=== PATIENT | male | born 1950 | race Caucasian/White ===

== ENCOUNTER → 2020-03-15 08:38 | Outpatient (BNVA) | payer MEDICARE, SELFPAY | PROVIDERS: Family Provider Family Medicine; PCP Family Medicine; Visit Provider Family Medicine | DX: I10 Essential (primary) hypertension (principal); L97.329 Non-pressure chronic ulcer of left ankle with unspecified severity | CPT/HCPCS: 80053; 80061; 82044; 84450; 85025; 87070; 87077; 87186 ==

== ENCOUNTER 2020-03-20 07:58 | Outpatient (CLI) | payer MEDICARE, SELFPAY | END 2020-03-20 07:59 | disposition home or self-care (01) | LOC: WOUND 08:01 | PROVIDERS: Family Provider Family Medicine; PCP Family Medicine; Visit Provider Thoracic Surgery (Cardiothoracic Vascular Surgery) | DX: I87.2 Venous insufficiency (chronic) (peripheral) (principal); L97.822 Non-pressure chronic ulcer of other part of left lower leg with fat layer exposed | CPT/HCPCS: 11042; G0463 ==

== ENCOUNTER 2020-03-27 08:10 | Outpatient (CLI) | payer MEDICARE, SELFPAY | END 2020-03-27 08:11 | disposition home or self-care (01) | LOC: WOUND 08:13 | PROVIDERS: Family Provider Family Medicine; PCP Family Medicine; Visit Provider Thoracic Surgery (Cardiothoracic Vascular Surgery) | DX: I87.2 Venous insufficiency (chronic) (peripheral) (principal); L97.822 Non-pressure chronic ulcer of other part of left lower leg with fat layer exposed | CPT/HCPCS: 11042 ==

== ENCOUNTER 2020-04-02 07:47 | Outpatient (CLI) | payer MEDICARE, SELFPAY ==
--- NOTE | 2020-04-02 08:00 | CT_ITS ---
WS: [id number] CT scan of the abdominal aorta and runoff into the lower extremities.. Additional two-dimensional cor onal and sagittal reconstruction was performed. MIP images were also performed. 04/02/2020 Clinical Data: Lifestyle limiting claudication Comparison: CTA of the abdominal aorta with runoff, 04/05/2019. DLP: 1627.[address] scans at [facility] use at least one of these dose optimization techniques: automat ed exposure control; mA and/or kV adjustment per patient size (includes targeted exams where dose is matched to clinical indication); or iterative reconstruction. Findings: The abdominal aorta is normal in size with atherosclerotic change of the wall. The renal arteries, ce liac artery, SMA and NEAL are intact. The common iliac arteries branching into the internal and steel plate printer al iliac arteries. The common femoral arteries are normal. The right superficial femoral artery is occluded and there is reconstitution of flow below the poplit eal artery in the anterior tibial artery, peroneal artery and posterior tibial artery. The small deirdre angelia show flow through the right ankle and foot. The left superficial femoral artery is patent and flows into the popliteal artery. The left anterior tibial, posterior tibial and peroneal arteries are diminutive. The flow of these arteries can be seen down to the distal tibia and fibula. Then there is collateral circulation to the left ankle and foot . CT abdomen and pelvis: The lungs show no nodules, masses or effusions. The liver shows fatty infiltration. The spleen, pancr eas, spleen and adrenal glands show no changes from before. There is a small right adrenal adenoma un changed. The kidney show excellent bilateral contrast excretion. There is a 0.5 cm nonobstructing juan manuel tral left renal calculus. There is a 4.4 cm inferior right renal cyst. The stomach, small bowel and c olon are unremarkable. The patient has had a ventral hernia repair. No abscess, adenopathy, ascites, mass, obstruction or free air is seen. The prostate is enlarged with calcifications within. The bladd er is unremarkable. There are bilateral fat-containing inguinal hernias. There is osteoarthritic almazan ge in degenerative disc disease of the lower thoracic and of the lumbar vertebral bodies. CT/CT angio abd aorta runof [id number] Impression: 1. No change in occlusion of the right superficial femoral and right popliteal arteries with collateral circulation reconstituting the arteries of the right l eg. 2. Decreased flow into the arteries of the left leg unchanged. 3. No acute intra-abdominal or pelvic abnormalities are noted.
[2020-04-02] MEDS: iohexol 350 mg/mL 100 mL Btl IV (08:27)
== END 2020-04-02 07:48 | disposition home or self-care (01) ==
LOC: RADWPI 07:50
PROVIDERS: Family Provider Family Medicine; PCP Family Medicine; Visit Provider Internal Medicine Cardiovascular Disease
DX: I73.9 Peripheral vascular disease, unspecified (principal); I70.8 Atherosclerosis of other arteries
CPT/HCPCS: 75635; Q9967

== ENCOUNTER 2020-04-03 08:35 | Outpatient (CLI) | payer MEDICARE, SELFPAY | END 2020-04-03 08:36 | disposition home or self-care (01) | LOC: WOUND 08:37 | PROVIDERS: Family Provider Family Medicine; PCP Family Medicine; Visit Provider Thoracic Surgery (Cardiothoracic Vascular Surgery) | DX: I87.2 Venous insufficiency (chronic) (peripheral) (principal); L97.822 Non-pressure chronic ulcer of other part of left lower leg with fat layer exposed | CPT/HCPCS: 11042 ==

== ENCOUNTER 2020-04-05 16:13 | Outpatient (CLI) | payer MEDICARE, SELFPAY | END 2020-04-05 16:14 | disposition home or self-care (01) | LOC: WOUND 16:16 | PROVIDERS: Family Provider Family Medicine; PCP Family Medicine; Visit Provider Surgery | DX: Z51.89 Encounter for other specified aftercare (principal) | CPT/HCPCS: 29581 ==

== ENCOUNTER 2020-04-10 08:38 | Outpatient (CLI) | payer MEDICARE, SELFPAY | END 2020-04-10 08:39 | disposition home or self-care (01) | LOC: WOUND 08:39 | PROVIDERS: Family Provider Family Medicine; PCP Family Medicine; Visit Provider Thoracic Surgery (Cardiothoracic Vascular Surgery) | DX: I87.2 Venous insufficiency (chronic) (peripheral) (principal); L97.822 Non-pressure chronic ulcer of other part of left lower leg with fat layer exposed | CPT/HCPCS: 11042 ==

== ENCOUNTER 2020-04-12 15:28 | Outpatient (CLI) | payer MEDICARE, SELFPAY | END 2020-04-12 15:29 | disposition home or self-care (01) | LOC: WOUND 15:40 | PROVIDERS: Family Provider Family Medicine; PCP Family Medicine; Visit Provider Surgery | DX: T81.31XA Disruption of external operation (surgical) wound, not elsewhere classified, initial encounter (principal); Y83.8 Other surgical procedures as the cause of abnormal reaction of the patient, or of later complication, without mention of misadventure at the time of the procedure; S31.102A Unspecified open wound of abdominal wall, epigastric region without penetration into peritoneal cavity, initial encounter; X58.XXXA Exposure to other specified factors, initial encounter | CPT/HCPCS: 29581 ==

== ENCOUNTER 2020-04-15 13:44 | Outpatient (CLI) | payer MEDICARE, SELFPAY ==
--- NOTE | 2020-04-15 13:51 | USCV_ITS ---
Jt Mccoy Age: 69 Gender: M : 1950 Exam Date: 04/15/2020 14:05 Ordering Phys: Edmond Edmond MD (Andy) ([email or web address]) Technologist: Daysi Napoles Exam Location: [facility] [place] Indication: HISTORY: Patient has ulcers. PROCEDURES: FINDINGS: There is no evidence of LEFT deep vein thrombosis. No evidence of superficial thrombosis in the LEFT saphenous system. Reflux is demonstrated in the deep venous system at the level of the LEFT Popliteal. No venous reflux noted in the LEFT greater saphenous vein. Vein is to small to follow after proximal location. Venous reflux is demonstrated in the LEFT small saphenous vein with a spectral Doppler display of greater than 500 mlsec at the level of the medial calf. CONCLUSIONS 1. No evidence of DVT in the above-mentioned identifiable veins. 2. Significant venous reflux of greater than 500 ms were noted at the mid saphenous vein segment the left side. The proximal saphenous vein segment was found to no significant reflux 3. Significant venous reflux of greater than 1000 ms was noted at the left popliteal vein. 4. The mid, distal and below-knee greater saphenous vein segments were not visualized well. 5. Venous dimensions, depth from the surface and reflux times are as mentioned above Dr Emily Schwartz MD [facility] (Electronically Signed) Final Date: 15 April 2020 19:38 S
== END 2020-04-15 13:45 | disposition home or self-care (01) ==
PROVIDERS: Family Provider Family Medicine; PCP Family Medicine; Visit Provider Thoracic Surgery (Cardiothoracic Vascular Surgery)
DX: M79.605 Pain in left leg (principal); L97.929 Non-pressure chronic ulcer of unspecified part of left lower leg with unspecified severity
CPT/HCPCS: 93971

== ENCOUNTER 2020-04-16 08:15 | Outpatient (CLI) | payer MEDICARE, SELFPAY | END 2020-04-16 08:16 | disposition home or self-care (01) | LOC: WOUND 08:16 | PROVIDERS: Family Provider Family Medicine; PCP Family Medicine; Visit Provider Thoracic Surgery (Cardiothoracic Vascular Surgery) | DX: I87.2 Venous insufficiency (chronic) (peripheral) (principal); L97.822 Non-pressure chronic ulcer of other part of left lower leg with fat layer exposed | CPT/HCPCS: 11042 ==

== ENCOUNTER 2020-04-23 14:00 | Outpatient (CLI) | payer MEDICARE, SELFPAY | END 2020-04-23 14:01 | disposition home or self-care (01) | LOC: WOUND 14:01 | PROVIDERS: Family Provider Family Medicine; PCP Family Medicine; Visit Provider Surgery | DX: I87.2 Venous insufficiency (chronic) (peripheral) (principal); L97.822 Non-pressure chronic ulcer of other part of left lower leg with fat layer exposed | CPT/HCPCS: 11042 ==

== ENCOUNTER 2020-04-30 08:00 | Outpatient (CLI) | payer MEDICARE, SELFPAY | END 2020-04-30 08:01 | disposition home or self-care (01) | LOC: WOUND 08:02 | PROVIDERS: Family Provider Family Medicine; PCP Family Medicine; Visit Provider Thoracic Surgery (Cardiothoracic Vascular Surgery) | DX: I87.2 Venous insufficiency (chronic) (peripheral) (principal); L97.822 Non-pressure chronic ulcer of other part of left lower leg with fat layer exposed | CPT/HCPCS: 11042; A6545 ==

== ENCOUNTER 2020-05-07 08:24 | Outpatient (CLI) | payer MEDICARE, SELFPAY | END 2020-05-07 08:25 | disposition home or self-care (01) | LOC: WOUND 08:28 | PROVIDERS: Family Provider Family Medicine; PCP Family Medicine; Visit Provider Thoracic Surgery (Cardiothoracic Vascular Surgery) | DX: E78.1 Pure hyperglyceridemia (principal); I87.2 Venous insufficiency (chronic) (peripheral); L97.822 Non-pressure chronic ulcer of other part of left lower leg with fat layer exposed | CPT/HCPCS: 11042; 80053 ==

== ENCOUNTER 2020-05-14 08:37 | Outpatient (CLI) | payer MEDICARE, SELFPAY | END 2020-05-14 08:38 | disposition home or self-care (01) | LOC: WOUND 08:40 | PROVIDERS: Family Provider Family Medicine; PCP Family Medicine; Visit Provider Thoracic Surgery (Cardiothoracic Vascular Surgery) | DX: I87.2 Venous insufficiency (chronic) (peripheral); L97.829 Non-pressure chronic ulcer of other part of left lower leg with unspecified severity | CPT/HCPCS: 29581 ==

== ENCOUNTER 2020-05-21 08:27 | Outpatient (CLI) | payer MEDICARE, SELFPAY | END 2020-05-21 08:28 | disposition home or self-care (01) | LOC: WOUND 08:29 | PROVIDERS: Family Provider Family Medicine; PCP Family Medicine; Visit Provider Thoracic Surgery (Cardiothoracic Vascular Surgery) | DX: Z09 Encounter for follow-up examination after completed treatment for conditions other than malignant neoplasm (principal) | CPT/HCPCS: 99212 ==

== ENCOUNTER 2020-05-28 08:25 | Outpatient (CLI) | payer MEDICARE, SELFPAY | END 2020-05-28 08:26 | disposition home or self-care (01) | LOC: WOUND 08:28 | PROVIDERS: Family Provider Family Medicine; PCP Family Medicine; Visit Provider Emergency Medicine | DX: I87.2 Venous insufficiency (chronic) (peripheral) (principal); L97.822 Non-pressure chronic ulcer of other part of left lower leg with fat layer exposed | CPT/HCPCS: 99212 ==

== ENCOUNTER 2020-06-04 08:06 | Outpatient (CLI) | payer MEDICARE, SELFPAY | END 2020-06-04 08:07 | disposition home or self-care (01) | LOC: WOUND 08:09 | PROVIDERS: Family Provider Family Medicine; PCP Family Medicine; Visit Provider Nurse Practitioner Family | DX: I87.2 Venous insufficiency (chronic) (peripheral) (principal); L97.822 Non-pressure chronic ulcer of other part of left lower leg with fat layer exposed; L03.116 Cellulitis of left lower limb | CPT/HCPCS: 99212 ==

== ENCOUNTER 2020-06-04 09:47 | Emergency (ER) | payer MEDICARE, SELFPAY ==
[2020-06-04 09:52] VITALS: BMI 35.2
--- NOTE | 2020-06-04 09:53 | USCV_ITS ---
Jt Mccoy Age: 69 Gender: M : 1950 Exam Date: 06/04/2020 10:29 Ordering Phys: Catarino Owen DO Technologist: Norman Barragan [place] [facility] [place] Indication: VENOUS ULCERS HISTORY: Ulcers. PROCEDURES: The venous duplex Doppler examination of both lower extremities was performed in the standard fashion. The following venous structures were evaluated: common femoral vein, profunda vein, proximal portion of the greater saphenous vein, superficial femoral vein, and the popliteal vein. FINDINGS: Normal 2-D Doppler and augmentation and compressibility throughout the lower extremity venous structures. Additional imaging through the proximal calf veins also reveals no thrombus. Limited evaluation of the greater saphenous vein is patent with no thrombus.. CONCLUSIONS No evidence of DVT in the above-mentioned identifiable veins. Dr Emily Schwartz MD [facility] (Electronically Signed) Final Date: 04 June 2020 19:32 S
[2020-06-04 09:54] VITALS: BP 157/82; PULSE 92; RESP 18; TEMP 36.4; O2SAT 97
[2020-06-04 10:24] LABS: Basophils % 0.7 %; Eosinophils # 0.2 10^3/uL (0.0-0.8); Eosinophils % 4.3 %; Hematocrit 46.6 % (42.0-52.0); Hemoglobin 15.1 g/dL (11.7-16.6); Lymphocytes # 1.1 10^3/uL (0.8-4.8); Lymphocytes % 19.8 %; Mean Corpuscular HGB Conc 32.4 g/dL (30.0-36.0); Mean Corpuscular Hemoglobin 30.8 pg (28.0-34.0); Mean Corpuscular Volume 94.9 fL (80-94); Mean Platelet Volume 9.4 fL (7.4-10.4); Monocytes # 0.4 10^3/uL (0.2-0.9); Monocytes % 6.6 %; Neutrophils # 3.79 10^3/uL (1.8-7.7); Neutrophils % 67.4 %; Nucleated Red Blood Cells % 0 %; Platelet Count 246 10^3/cmm (130-400); Red Blood Count 4.91 10^6/uL (4.1-5.3); Red Cell Distribution Width 12.9 % (12.1-15.1); White Blood Count 5.6 10^3/uL (4.0-10.0)
--- NOTE | 2020-06-04 10:35 | ED_ITS ---
HPI - Extremity Problem General: Chief complaint: Extremity Problem,Nontraumatic Stated complaint: sent from wound care for iv Time Seen by Provider: 06/04/20 09:53 History of Present Illness: HPI Narrative: 69-year-old male presents with left leg swelling. He was seen at the wound care clinic today referred here because of concern of DVT he has a lot of skin breakdown the left leg as well and some moderate swelling of the right leg. He had been on some clindamycin for last few days he is got a rash on his extremities but none on his torso they are concerned may have been a reaction to the clindamycin he was referred here by the nurse practitioner at wound care clinic. Patient denies any chest pain or shortness of breath he is not had any fever sweats or chills. He does state the swelling of his extremities is chronic but has gotten worse the last few days. MD Complaint: extremity swelling Onset (ago): day(s) Location: left Quality: aching Relieving factors: nothing Exacerbating factors: nothing Associated symptoms: Reports rash; Deny arthralgias, chest pain, fever(s), myalgias or short of breath Review of Systems Const: Denies: fever(s) ENMT: Denies: throat pain, ear or mastoid pain, nasal discharge or nasal congestion Card: Denies: chest pain Resp: Denies: dyspnea, productive cough or non-productive cough GI: Denies: abdominal pain, nausea, vomiting, hematemesis, coffee ground emesis, diarrhea, constipation, bloating, hematochezia or melena : Denies: flank pain, dysuria, urinary frequency or urinary urgency Skin/Breast: Reports: rash [facility] PFSH: Medical History ANY (generalized anxiety disorder) History of prostate cancer History of pulmonary embolism HTN (hypertension) Hypertriglyceridemia Lower urinary tract symptoms (LUTS) BIRGIT (obstructive sleep apnea) Peripheral Vascular Disease S/P angiogram of extremity Surgical History History of prostate biopsy S/P appendectomy S/P hernia repair S/P knee surgery S/P lymph node biopsy S/P routine circumcision S/P tonsillectomy S/P vein stripping Family History Other Cancer Social History Smoking and tobacco status: current every day smoker cigarettes Packs smoked per day: 0.5 Alcohol intake: never Physical Exam Const: COMMON NORMALS: no acute distress GENERAL APPEARANCE: cooperative and comfortable ORIENTATION/CONSCIOUSNESS: Yes awake, Yes oriented to person, Yes oriented to place and Yes oriented to time HENMT: COMMON NORMALS: normocephalic, atraumatic and hearing grossly normal bilaterally HEAD & SCALP: normocephalic and atraumatic Eye: COMMON NORMALS: Equal, round and reactive pupils present, EOMs intact bilaterally, conjunctivae normal and no scleral icterus CONJUNCTIVA: Yes conjunctivae normal PUPIL: Yes Equal, round and reactive pupils present Neck/C-Spine: COMMON NORMALS: full ROM, no lymphadenopathy, supple and no JVD Lymph: LYMPHATIC: no lymphadenopathy noted and no lymphedema noted Resp: COMMON NORMALS: normal respiratory effort, No retractions, No use of acc essory muscles and clear to auscultation bilaterally AUSCULTATION: clear to auscultation bilaterally Cardio: COMMON NORMALS: no JVD, regular rate, regular rhythm and No murmurs present (Cardio) RATE: regular rate RHYTHM: regular rhythm GI: COMMON NORMALS: Soft to palpation and No hepatosplenomegaly present AUSCULTATION: Yes normoactive bowel sounds PALPATION: Yes Soft to palpation, No Tenderness to palpation present (GI), No Guarding due to palpation present (GI) and Yes No hepatosplenomegaly present Extremity: NARRATIVE EXTREMITY EXAM: 2+ edema of the right lower leg 3+ edema of the left lower leg to the level of the knee with significant skin breakdown and excoriation it is deeply violaceous. There is no active purulent drainage. It is tender to the touch. Neuro: SENSORIUM/ORIENTATION: Yes oriented to person, Yes oriented to place and Yes oriented to time Skin: NARRATIVE SKIN EXAM: Rash mildly raised papules with some excoriation of the distal extremities which fades as it gets more proximal there are no vesicles. No signs of infections in the upper extremities see above for the lower extremities the right lower leg has changes of chronic venous stasis edema without findings of the rash found on the upper extremities. Course Vital Signs: Vital signs: Vital Signs Temperature 98.7 F 06/04/20 11:21 Pulse Rate 71 06/04/20 11:21 Respiratory Rate 20 H 06/04/20 11:21 Blood Pressure 163/78 06/04/20 11:21 Pulse Oximetry 97 06/04/20 11:21 MDM - Extremity (Nontraumatic) MDM Narrative: Medical decision making narrative: No DVT noted on ultrasound patient has significant edema which is chronic. He is on Eliquis 5 mg twice daily and has been taking it continue to take that. There is a concern he may be reacting to clindamycin a little bit cautious about.he does not really have a systemic rash its only on his distal extremities. We will go ahead and discharge him home on doxycycline have him stop the clindamycin for now continue his Eliquis and follow-up with his wound care clinic within the next 2 to 3 days. Lab Data: Labs: Lab Results 06/04/20 06/04/20 Range/Units 10:10 10:10 WBC 5.6 (4.0-10.0) 10^3/ uL RBC 4.91 (4.1-5.3) 10^6/u L Hgb 15.1 (11.7-16.6) g/dL Hct 46.6 (42.0-52.0) % MCV 94.9 H (80-94) fL MCH 30.8 (28.0-34.0) pg MCHC 32.4 (30.0-36.0) g/dL RDW 12.9 (12.1-15.1) % Plt Count 246 (130-400) 10^3/c mm MPV 9.4 (7.4-10.4) fL Neut % (Auto) 67.4 % Lymph % (Auto) 19.8 % Daniels % (Auto) 6.6 % Eos % (Auto) 4.3 % Baso % (Auto) 0.7 % Neut # (Auto) 3.79 (1.8-7.7) 10^3/u L Lymph # (Auto) 1.1 (0.8-4.8) 10^3/u L Daniels # (Auto) 0.4 (0.2-0.9) 10^3/u L Eos # (Auto) 0.2 (0.0-0.8) 10^3/u L Baso # (Auto) 0.0 (0.0-0.1) 10^3/u L Nucleated RBC % (a uto) 0 % Nucleated RBCs # 0.0 /100WBC Sodium 140 (136-145) mmol/L Potassium 3.9 (3.5-5.1) mmol/L Chloride 106 (98-107) mmol/L Carbon Dioxide 23 (22-29) mmol/L Anion Gap 14.9 (5-19) BUN 11 (8-23) mg/dL Creatinine 0.9 (0.7-1.2) mg/dL GFR Calculation Not Reportable Glucose 138 H (65-115) mg/dL Calculated Osmolal ity 288 (285-295) mOsm/k g Calcium 8.5 (8.5-10.5) mg/dL Total Bilirubin 0.4 (0.15-1.2) mg/dL AST 19 (0-40) U/L ALT 12 (0-41) U/L Alkaline Phosphata se 67 (40-130) IU/L Total Protein 7.0 (6.6-8.7) g/dL Albumin 3.3 L (3.5-5.2) g/dL Globulin 3.7 (1.3-4.6) g/dL Discharge Plan Discharge Patient Disposition: Home Clinical Impression: Lower extremity edema, Peripheral Vascular Disease, Cellulitis Condition: Stable Prescriptions: New doxycycline hyclate 100 mg capsule 100 mg PO BID 10 Days Qty: 20 RF: 0 No Action cilostazol 50 mg tablet 50 mg PO BID 90 Days Qty: 180 RF: 3 alprazolam 0.5 mg tablet 0.5 mg PO DAILY PRN (Reason: anxiety) Qty: 30 RF: 1 tamsulosin 0.4 mg capsule 0.4 mg PO BID Qty: 60 RF: 12 atorvastatin 10 mg tablet 10 mg PO DAILY Qty: 45 RF: 0 Eliquis 5 mg tablet 5 mg PO BID Qty: 60 RF: 2 Discharge Orders: Discharge Order (Routine); Ordered 06/04/20 Ordered By: Catarino Owen Referrals: Yecenia Hernandez DO [Primary Care Provider] - Discharge Diet: Usual diet Discharge Activity: Increase activity as tolerated Activity Restrictions/Additional Instructions: Follow-up with wound care in the next 2 to 3 days. Return to the urgent emergency room for further problems. Discharge Date/Time: 06/04/20 11:24 Coding Level of Care Code ED Family Nurse Practitioner for Marcella Fwgonzales Exam Comprehensive
[2020-06-04 10:39] VITALS: BP 134/63; PULSE 90; RESP 18; O2SAT 98
[2020-06-04 10:40] LABS: Alanine Aminotransferase 12 U/L (0-41); Albumin Level 3.3 g/dL (3.5-5.2); Alkaline Phosphatase 67 IU/L (40-130); Anion Gap 14.9 (5-19); Aspartate Amino Transferase 19 U/L (0-40); Blood Urea Nitrogen 11 mg/dL (8-23); Calcium 8.5 mg/dL (8.5-10.5); Carbon Dioxide 23 mmol/L (22-29); Chloride 106 mmol/L (98-107); Globulin 3.7 g/dL (1.3-4.6); Glucose 138 mg/dL (65-115); Osmolality Calculated 288 mOsm/kg (285-295); Potassium 3.9 mmol/L (3.5-5.1); Sodium 140 mmol/L (136-145); Total Bilirubin 0.4 mg/dL (0.15-1.2)
[2020-06-04 11:21] VITALS: BP 163/78; PULSE 71; RESP 20; TEMP 37.1; O2SAT 97
== END 2020-06-04 11:24 | disposition home or self-care (01) ==
PROVIDERS: Emergency Provider Family Medicine; PCP Family Medicine
DX: I73.9 Peripheral vascular disease, unspecified (principal); L03.90 Cellulitis, unspecified; Z85.46 Personal history of malignant neoplasm of prostate; Z79.01 Long term (current) use of anticoagulants; I10 Essential (primary) hypertension; F17.210 Nicotine dependence, cigarettes, uncomplicated; I87.2 Venous insufficiency (chronic) (peripheral); L97.822 Non-pressure chronic ulcer of other part of left lower leg with fat layer exposed; L03.116 Cellulitis of left lower limb
CPT/HCPCS: 12345; 36415; 80053; 85025; 87040; 93970; 99212; 99282; 99283

== ENCOUNTER 2020-06-11 08:24 | Outpatient (CLI) | payer MEDICARE, SELFPAY | END 2020-06-11 08:25 | disposition home or self-care (01) | LOC: WOUND 08:25 | PROVIDERS: PCP Family Medicine; Visit Provider Thoracic Surgery (Cardiothoracic Vascular Surgery) | DX: I87.2 Venous insufficiency (chronic) (peripheral) (principal); L97.822 Non-pressure chronic ulcer of other part of left lower leg with fat layer exposed | CPT/HCPCS: 11042; 11045; 29581 ==

== ENCOUNTER 2020-06-13 15:08 | Outpatient (CLI) | payer MEDICARE, SELFPAY | END 2020-06-13 15:09 | disposition home or self-care (01) | LOC: WOUND 15:09 | PROVIDERS: PCP Family Medicine; Visit Provider Emergency Medicine | DX: I87.2 Venous insufficiency (chronic) (peripheral) (principal); L97.822 Non-pressure chronic ulcer of other part of left lower leg with fat layer exposed; L03.116 Cellulitis of left lower limb | CPT/HCPCS: 29581 ==

== ENCOUNTER → 2020-07-15 12:04 | Outpatient (BNVA) | payer MEDICARE, SELFPAY | PROVIDERS: PCP Family Medicine; Visit Provider Family Medicine | DX: E78.1 Pure hyperglyceridemia (principal); R73.09 Other abnormal glucose | CPT/HCPCS: 80061; 83036 ==

== ENCOUNTER 2020-08-28 13:17 | Outpatient (CLI) | payer MEDICARE, SELFPAY ==
--- NOTE | 2020-08-28 13:00 | XR_ITS ---
WS: [id number] KUB, 08/28/2020 Clinical Data: Stones Comparison: None. Findings: No abnormal intraabdominal masses or calcifications are seen. There is no dilatated small bowel or ev idence of obstruction. No renal or ureteral calculi are seen. The place has had anterior abdominal wall surgery. XR/XR KUB [id number] Impression: Negative KUB.
--- NOTE | 2020-08-28 13:30 | US_ITS ---
WS: [id number] ULTRASOUND RENAL TECHNIQUE: Ultrasound examination of both kidneys. CLINICAL INFORMATION: Stones COMPARISON: None. FINDINGS: RIGHT:Mid pole simple right renal cyst measuring 4.2 x 4.3 x 3.9 cm. Right kidney is normal in size and appearance. Echogenicity: Normal. Cortical thickness: 2.1 cm; Normal. Hydronephrosis: None. Perinephric fluid: None. Right kidney measures: 13.0 cm x 5.7 cm x 6.5 cm. LEFT: Left kidney is normal in size and appearance. Echogenicity: Normal. Cortical thickness: 1.3 cm; Normal. Hydronephrosis: None. Perinephric fluid: None. Left kidney measures: 9.9 cm x 4.3 cm x 5.8 cm. Normal visualized aorta. US/US renal BI* [id number] IMPRESSION: 1. No hydronephrosis in either kidney. 2. Mid pole simple right renal cyst measuring 4.2 x 4.3 x 3.9 cm.
== END 2020-08-28 13:18 | disposition home or self-care (01) ==
LOC: US 13:18
PROVIDERS: PCP Family Medicine; Visit Provider Urology
DX: N20.0 Calculus of kidney (principal); C61 Malignant neoplasm of prostate; R31.0 Gross hematuria; N28.1 Cyst of kidney, acquired
CPT/HCPCS: 74018; 76770; 81003; 84153

== ENCOUNTER → 2020-09-13 15:28 | Outpatient (BNVA) | payer MEDICARE, SELFPAY | PROVIDERS: PCP Family Medicine; Visit Provider Nurse Practitioner Family | DX: Z20.828 Contact with and (suspected) exposure to other viral communicable diseases (principal) | CPT/HCPCS: 87635 ==

== ENCOUNTER → 2020-11-01 11:48 | Outpatient (BNVA) | payer MEDICARE, SELFPAY | PROVIDERS: PCP Family Medicine; Visit Provider Internal Medicine Cardiovascular Disease | DX: E78.1 Pure hyperglyceridemia (principal) | CPT/HCPCS: 80061 ==

== ENCOUNTER 2021-06-27 23:51 | Emergency (ER) | payer MEDICARE, SELFPAY ==
[2021-06-27 23:54] VITALS: BP 160/78; PULSE 91; RESP 18; TEMP 36.8; O2SAT 97; BMI 34.2
--- NOTE | 2021-06-28 00:16 | W.ED.ALLEREA ---
HPI - Allergic Reaction General: Chief complaint: Allergic Reaction Stated complaint: POSS ALLERGIC REACTION Time Seen by Provider: 06/27/21 23:57 Source: patient Mode of arrival: ambulatory Limitations: no limitations History of Present Illness: HPI narrative: 70-year-old male states roughly 1 hour ago he started having swelling to the right side of his tongue. He states that its stayed the same over last hour with no worsening improving factors but is not gotten any better. He denies any difficulty swallowing. Denies any throat pain. Patient is on lisinopril states he is never had this before in the past. Associated symptoms: Deny abdominal pain, nausea or vomiting Review of Systems Const: Denies: fever(s), chills, body aches or change in appetite Eyes: Denies: blurry vision or eye discomfort ENMT: Reports: swelling of lips/tongue Card: Denies: chest pain Resp: Denies: dyspnea GI: Denies: abdominal pain, nausea, vomiting or diarrhea : Denies: dysuria Musc: Denies: neck pain or back pain Skin/Breast: Denies: rash Neuro: Denies: headache(s) Psych: Denies: depression Jose/Lymph: Denies: easy bruising All/Imm: Denies: urticaria PFSH ED PFSH: Medical History CHF (congestive heart failure) ANY (generalized anxiety disorder) History of prostate cancer History of pulmonary embolism HTN (hypertension) Hypertriglyceridemia Lower urinary tract symptoms (LUTS) BIRGIT (obstructive sleep apnea) Peripheral Vascular Disease Prostate cancer S/P angiogram of extremity Surgical History History of prostate biopsy S/P appendectomy S/P hernia repair S/P knee surgery S/P lymph node biopsy S/P routine circumcision S/P tonsillectomy S/P vein stripping Family History Other Cancer Social History Smoking and tobacco status: current every day smoker cigarettes Packs smoked per day: 0.5 Alcohol intake: never Adopted: No Caregiver/support person: No Lives independently: No Household members: spouse Marital status: Current occupational status: retired Physical Exam Const: COMMON NORMALS: no acute distress, patient oriented x3 and healthy appearing HENMT: COMMON NORMALS: normocephalic and atraumatic HEAD & SCALP: normocephalic and atraumatic OTHER: Swelling to right side of the tongue handling his secretions well no lip or posterior pharynx swelling Eye: COMMON NORMALS: Equal, round and reactive pupils present and EOMs intact bilaterally PUPIL: Yes Equal, round and reactive pupils present Neck/C-Spine: COMMON NORMALS: full ROM and supple Chest: COMMONS NORMALS: normal inspection of the chest and normal palpation of entire chest wall Resp: COMMON NORMALS: normal respiratory effort, No retractions, No use of accessory muscles and clear to auscultation bilaterally AUSCULTATION: clear to auscultation bilaterally Cardio: COMMON NORMALS: regular rate, regular rhythm and No murmurs present (Cardio) RATE: regular rate RHYTHM: regular rhythm GI: COMMON NORMALS: Normal to inspection, nondistended, normoactive bowel sounds present, Soft to palpation, non-tender and no masses PALPATION: Yes Soft to palpation Extremity: COMMON NORMALS: normal to inspection and full ROM Neuro: COMMON NORMALS: patient oriented x3, moves all extremities and no focal motor deficits Psych: COMMON NORMALS: mental status grossly normal, Normal thought process present and cooperative THOUGHT PROCESS: Normal thought process present Skin: COMMON NORMALS: no rashes or lesions noted and no wounds GENERAL SKIN EXAM: no rashes or lesions noted Course Vital Signs: Vital signs: Vital Signs Temperature 98.3 F 06/27/21 23:54 Pulse Rate 80 06/28/21 03:46 Respiratory Rate 24 H 06/28/21 03:46 Blood Pressure 119/55 06/28/21 03:46 Pulse Oximetry 96 06/28/21 03:46 MDM - Allergic Reaction MDM Narrative: Medical decision making narrative: Patient presents here with angioedema likely from his lisinopril. Patient was observed here for 5 hours needs much improved. He has no signs of airway involvement I feel he is stable for discharge. He is to stop the lisinopril and we will start him on Lomotil pain. He is return if worsening follow-up his PCP. Discharge Plan Discharge Patient Disposition: Home Clinical Impression: Angioedema Qualifiers: Encounter type: initial encounter Qualified Code(s): T78.3XXA - Angioneurotic edema, initial encounter Condition: Stable Prescriptions: New amlodipine 5 mg tablet 5 mg PO DAILY Qty: 30 RF: 0 Discontinued lisinopril 10 mg tablet 10 mg PO BID Qty: 60 RF: 6 No Action alprazolam 0.5 mg tablet 0.5 mg PO DAILY PRN (Reason: anxiety) Qty: 30 RF: 1 furosemide [Lasix] 40 mg tablet 40 mg PO QAM PRN (Reason: edema) Qty: 90 RF: 3 potassium chloride 20 mEq tablet extended release 20 meq PO DAILY PRN (Reason: Take with Lasix) Qty: 90 RF: 3 atorvastatin 40 mg tablet 40 mg PO DAILY Qty: 90 RF: 3 Eliquis 5 mg tablet 5 mg PO BID Qty: 60 RF: 2 tamsulosin 0.4 mg capsule 0.4 mg PO BID Qty: 60 RF: 12 Discharge Orders: Discharge ED (Routine); Ordered 06/28/21 Ordered By: Eduard Baptiste Referrals: Yecenia Hernandez DO [Primary Care Provider] - 1-3 days Discharge Diet: Advance as tolerated Discharge Activity: Resume usual activity Patient Instructions: Angioedema (ED) Coding Level of Care Code ED Programmer Analyst Consultant for Marcella Fwd Exam Comprehensive
[2021-06-28] MEDS: EPINEPHrine 1 mg/mL INJ 0.3 MG IM (00:27)
[2021-06-28] MEDS: diphenhydrAMINE 50 mg/mL SDV 1mL IVP (00:27)
[2021-06-28 00:28] VITALS: BP 138/71; PULSE 80; RESP 15; O2SAT 96
--- NOTE | 2021-06-28 01:05 | PC.NURSE ---
enrike resting on bed, denies needs or changes at this time, no change to assessment.
[2021-06-28 01:10] VITALS: BP 115/63; PULSE 26; RESP 21; O2SAT 95
[2021-06-28 01:23] VITALS: BP 115/63; PULSE 87; RESP 25; O2SAT 94
[2021-06-28 02:19] VITALS: BP 104/61; PULSE 73; RESP 20; O2SAT 94
[2021-06-28 03:46] VITALS: BP 119/55; PULSE 80; RESP 24; O2SAT 96
[2021-06-28 05:10] VITALS: BP 113/64; PULSE 78; RESP 21; O2SAT 95
== END 2021-06-28 05:11 | disposition home or self-care (01) ==
PROVIDERS: Emergency Provider Emergency Medicine; PCP Family Medicine
DX: T78.3XXA Angioneurotic edema, initial encounter (principal); Z79.01 Long term (current) use of anticoagulants; I11.0 Hypertensive heart disease with heart failure; I50.9 Heart failure, unspecified; Z85.46 Personal history of malignant neoplasm of prostate; Z86.711 Personal history of pulmonary embolism; F17.210 Nicotine dependence, cigarettes, uncomplicated
CPT/HCPCS: 96372; 96374; 96375; 99284; J0171; J1200; J2930

== ENCOUNTER → 2021-07-17 15:17 | Outpatient (BNVA) | payer MEDICARE, SELFPAY | PROVIDERS: PCP Family Medicine; Visit Provider Family Medicine | DX: I10 Essential (primary) hypertension (principal); Z86.711 Personal history of pulmonary embolism; R13.10 Dysphagia, unspecified | CPT/HCPCS: 80053; 85025 ==

== ENCOUNTER → 2021-09-26 11:24 | Outpatient (BNVA) | payer MEDICARE, SELFPAY | PROVIDERS: PCP Family Medicine; Visit Provider Surgery | DX: Z20.822 Contact with and (suspected) exposure to COVID-19 (principal); Z11.52 Encounter for screening for COVID-19 | CPT/HCPCS: 87635 ==

== ENCOUNTER 2021-10-03 06:14 | Day surgery (SDC) | payer MEDICARE, SELFPAY ==
[2021-10-01 10:37] VITALS: BMI 33.6
[2021-10-03 06:45] VITALS: BP 133/83; PULSE 71; RESP 18; TEMP 36.1; O2SAT 97
[2021-10-03] MEDS: sodium chloride 0.9% 1,000 ML 30 ML IV (06:55)
--- NOTE | 2021-10-03 06:59 | ANES.PREANE2 ---
Pre-Anesthetic Assessment Pre-Anesthetic Assessment: Height/Weight: Height 6 ft 1 in Weight 115.666 kg Temp Pulse Resp BP Pulse Ox 97.0 F L 71 18 133/83 97 10/03/21 06:45 10/03/21 06:45 10/03/21 06:45 10/03/21 06:45 10/03/21 06:45 Preop Diagnosis: upper gi symptoms Proposed Procedure: Operation Date: 10/03/21 07:30 Proposed Procedures p EGD 23360 R13.19(Not Applicable) - Gabo Vega MD Was Beta Jason taken within 24 hours: N/A Was Clonidine taken within 24 hours: N/A Last intake: Intake Last Liquid Date 10/02/21 Last Liquid Time 20:00 Last Solid Date 10/02/21 Last Solid Time 18:00 Social: Social History: Tobacco (daily) Exam: Pre-Anes Outpt Exam: alert, oriented x 3, clear to auscultation bilaterally and regular rate & rhythm Airway: Submandibular: WNL Cervical ROM: WNL MP: 2 Dentition: Chipped History/ROS: No significant history except as noted Pulmonary: Pulmonary: COPD, ROTH and SOB CV/HEM: CV/HEM: DVT (takes blood thinners/ hasn't taken in 3 days) : Comments: radiation therapy for prostate Hepatic: Hepatic: None reported GI: GI: None reported Metabolic: Metabolic: Hyperlipidemia Musc/skel: Musc/skel: Weakness (bad knees) Neuropsych: Neuropsych: None reported Anesthetic Plan: ASA status: 2 Anesthesia: Anesthesia Evaluation and MAC Risk of > 500 ml blood loss (7ml/kg in children): No Meds/Allergies Current Medications: Current Medications Generic Name Dose Route Start Last Admin Trade Name Freq PRN Reason Stop Dose Admin Sodium Chloride 1,000 mls @ 30 ml s/hr 10/03/21 06:30 10/03/21 06:55 Sodium Chloride 0.9% IV 10/04/21 06:29 30 mls/hr .Q24H MITZI Administration PFSH Anesthesia PFSH: Medical History (Updated 08/05/21 @ 13:59 by Gabo Vega MD) CHF (congestive heart failure) ANY (generalized anxiety disorder) History of pulmonary embolism HTN (hypertension) Hx of deep venous thrombosis Hypertriglyceridemia Lower urinary tract symptoms (LUTS) BIRGIT (obstructive sleep apnea) Peripheral Vascular Disease Prostate cancer Renal calculus, left Renal cyst, right Urinary frequency Surgical History (Updated 08/05/21 @ 15:24 by Gabo Vega MD) History of prostate biopsy History of umbilical hernia repair S/P angiogram of extremity S/P appendectomy S/P knee surgery S/P lymph node biopsy S/P routine circumcision S/P tonsillectomy S/P vein stripping Status post colonoscopy Family History Other Cancer Social History Smoking and tobacco status: current every day smoker cigarettes Packs smoked per day: 0.5 Alcohol intake: never Adopted: No Caregiver/support person: No Lives independently: No Household members: spouse Marital status: Current occupational status: retired Data Anesthesia Cardiac Studies: No Data to Display
--- NOTE | 2021-10-03 07:26 | W.PM.OPSFHP ---
Same Day Surgery H&P Indication for Procedure/HPI DATE OF PROCEDURE: October 03, 2021 CHIEF COMPLAINT/INDICATIONFOR SURGICAL PROCEDURE: egd PREOP DIAGNOSIS: upper gi symptoms PLANNED PROCEDRUE: Operation Date: 10/03/21 07:30 Proposed Procedures p EGD 85820 R13.19(Not Applicable) - Gabo Vega MD Medications/Allergies* Allergies/Adverse Reactions Allergy/AdvReac Type Severity Reaction Status Date / Time Sulfa (Sulfonamide Allergy Unknown rash Verified 08/05/21 13:44 Antibiotics) lisinopril Allergy tongue and Verified 08/05/21 13:44 throat swelling Current Medications: Generic Name Dose Route Start Last Admin Trade Name Freq PRN Reason Stop Dose Admin Sodium Chloride 1,000 mls @ 30 mls/hr 10/03/21 06:30 10/03/21 06:55 Sodium Chloride 0.9% IV 10/04/21 06:29 30 mls/hr .Q24H MITZI Administration Pertinent History/Comorbid Conditions* Medical History (Updated 08/05/21 @ 13:59 by Gabo Vega MD) CHF (congestive heart failure) ANY (generalized anxiety disorder) History of pulmonary embolism HTN (hypertension) Hx of deep venous thrombosis Hypertriglyceridemia Lower urinary tract symptoms (LUTS) BIRGIT (obstructive sleep apnea) Peripheral Vascular Disease Prostate cancer Renal calculus, left Renal cyst, right Urinary frequency Surgical History (Updated 08/05/21 @ 15:24 by Gabo Vega MD) History of prostate biopsy History of umbilical hernia repair S/P angiogram of extremity S/P appendectomy S/P knee surgery S/P lymph node biopsy S/P routine circumcision S/P tonsillectomy S/P vein stripping Status post colonoscopy Family History (Updated 01/25/20 @ 15:21 by Magdalena Bales RN) Cancer Social History Smoking and tobacco status: current every day smoker cigarettes Packs smoked per day: 0.5 Alcohol intake: never Adopted: No Caregiver/support person: No Lives independently: No Household members: spouse Marital status: Current occupational status: retired Pertinent Exam Findings alert, oriented x 3 and regular rate & rhythm Recommendations Surgery/Procedure today Coding Level of Care Code Acute Colorer Machine for Marcella Rivera
[2021-10-03 07:48] VITALS: BP 112/83; PULSE 73; RESP 20; TEMP 36.4; O2SAT 92
[2021-10-03 07:59] VITALS: BP 114/62; PULSE 70; RESP 19; O2SAT 93
--- NOTE | 2021-10-03 13:18 | ANE.PACU2 ---
Inpatient post-anesthesia follow up: Airway intact: Yes Vital signs: Temperature 97.5 F Pulse Rate 70 Respiratory Rate 19 Blood Pressure 114/62 Pulse Oximetry 93 Oxygen Delivery Me thod Nasal Cannula Oxygen Flow Rate 3 Fraction of Inspir ed Oxygen Hydration adequate: Yes Nausea and vomiting: No Pain level: 1 Mental status: Baseline
== END 2021-10-03 08:26 | disposition home or self-care (01) ==
PROVIDERS: PCP Family Medicine; Visit Provider Surgery
PROC: 0DJ08ZZ Inspection of Upper Intestinal Tract, Via Natural or Artificial Opening Endoscopic (ICD-10-PCS; CPT 43235; principal; 2021-10-03 07:30)
DX: R13.10 Dysphagia, unspecified (principal); K44.9 Diaphragmatic hernia without obstruction or gangrene; K29.70 Gastritis, unspecified, without bleeding; K22.2 Esophageal obstruction; J44.9 Chronic obstructive pulmonary disease, unspecified; Z86.718 Personal history of other venous thrombosis and embolism; E78.5 Hyperlipidemia, unspecified; I11.0 Hypertensive heart disease with heart failure; I50.9 Heart failure, unspecified; G47.33 Obstructive sleep apnea (adult) (pediatric); Z85.46 Personal history of malignant neoplasm of prostate; F17.210 Nicotine dependence, cigarettes, uncomplicated
CPT/HCPCS: 43239; 88305; 96360; J2704; J7030

== ENCOUNTER 2022-03-05 19:21 | Emergency (ER) | payer MEDICARE, SELFPAY ==
[2022-03-05 19:24] VITALS: BP 166/82; PULSE 98; RESP 18; TEMP 38.1; O2SAT 91
--- NOTE | 2022-03-05 20:35 | XRR_ITS ---
PROCEDURE INFORMATION: Exam: XR Chest Exam date and time: 03/05/2022 8:50 PM Age: 71 years old Clinical indication: Shortness of breath; Additional info: SOB TECHNIQUE: Imaging protocol: XR of the chest. Views: 1 view. COMPARISON: CR Chest 1 [place] [id number] 12/12/2018 11:37 PM FINDINGS: Lungs: Unremarkable. No consolidation. Pleural spaces: Unremarkable. No pleural effusion. No pneumothorax. Heart/Mediastinum: Unremarkable. No cardiomegaly. Bones/joints: Unremarkable. XR/XR chest 1V portable [id number] IMPRESSION: No acute findings.
--- NOTE | 2022-03-05 21:20 | ED_ITS ---
HPI - SOB/Dyspnea General: Chief Complaint: Shortness of Breath/Dyspnea Stated Complaint: SOB Time Seen by Provider: 03/05/22 21:20 History of Present Illness: HPI Narrative: Mr. Mccoy is a 71-year-old gentleman with history of PE on anticoagulation, peripheral arterial disease, hypertension presenting to the emergency department due to shortness of breath. Onset of symptoms was approximately 4 days ago and gradual. He has had cough, congestion, and generalized unwell feeling. Shortness of breath is worse with exertion but does not go with rest. He is now requiring oxygen which is not baseline for him. Overall intensity symptoms moderate. Course has worsened. Does have sick contacts and his . No other specific changes in health, exacerbating, or alleviating factors identified. Onset (ago): day(s) Timing: progressively worsening Exacerbating factors: exertion Review of Systems General: Reports: 10 or more systems reviewed and unremarkable except in HPI and below PFSH ED PFSH: Medical History BPH loc w urin obs/LUTS ANY (generalized anxiety disorder) History of pulmonary embolism HTN (hypertension) Hx of deep venous thrombosis Hypertriglyceridemia Lower urinary tract symptoms (LUTS) BIRGIT (obstructive sleep apnea) Peripheral Vascular Disease Prostate cancer Renal calculus, left Renal cyst, right Ulcer of left ankle Surgical History H/O esophagogastroduodenoscopy (10/03/21) History of prostate biopsy History of umbilical hernia repair S/P angiogram of extremity S/P appendectomy S/P knee surgery S/P lymph node biopsy S/P routine circumcision S/P tonsillectomy S/P vein stripping Status post colonoscopy Family History Other Cancer Social History Smoking and tobacco status: current every day smoker cigarettes Packs smoked per day: 0.5 Alcohol intake: never Adopted: No Caregiver/support person: No Lives independently: No Household members: spouse Marital status: Current occupational status: retired Physical Exam Const: COMMON NORMALS: alert GENERAL APPEARANCE: cooperative and well developed HENMT: COMMON NORMALS: normocephalic and atraumatic HEAD & SCALP: normocephalic and atraumatic Eye: COMMON NORMALS: conjunctivae normal CONJUNCTIVA: Yes conjunctivae normal SCLERA: sclerae normal Neck/C-Spine: COMMON NORMALS: supple GENERAL: Yes trachea midline Resp: EFFORT & INSPECTION: Yes able to speak in complete sentences and Yes tachypneic AUSCULTATION: rhonchi lower bilaterally Cardio: COMMON NORMALS: regular rate and regular rhythm RATE: regular rate RHYTHM: regular rhythm GI: COMMON NORMALS: Soft to palpation PALPATION: Yes Soft to palpation and No Tenderness to palpation present (GI) PERCUSSION: normal to percussion Extremity: GENERAL: Yes normal exam except as noted and No edema Neuro: COMMON NORMALS: moves all extremities SENSORIUM/ORIENTATION: Yes alert and No Orientation impaired Psych: COMMON NORMALS: mental status grossly normal and Normal thought process present THOUGHT PROCESS: Normal thought process present Skin: NARRATIVE SKIN EXAM: Chronic lower extremity vascular changes, reported baseline Course ED course: - Patient was seen and evaluated by me at bedside - Patient placed on cardiac monitors, IV access obtained - Initial evaluation notable for exam as above, tachypneic, new oxygen requirement. - Labs and xrays personally interpreted by me. EKG reviewed with no STEMI. -RT treatments ordered - Labs notable for no leukocytosis or significant hematologic abnormalities. Metabolic panel without acute derangement requiring intervention. Delta troponin negative. BNP is mildly elevated. Respiratory viral panel notable for positive parainfluenza virus 3. - Imaging notable for no lobar consolidation or pneumothorax. - Upon serial reexamination after treatment the patient was improved. He still required oxygen. - Based on patient history, evaluation, and testing as interpreted the most likely cause of the patient's condition is viral pneumonia. Additionally the patient does report a history of oxygen requirement with likely underlying COPD. This is likely viral exacerbation of COPD with acute hypoxic respiratory failure requiring supplemental oxygen as the patient desats to 80s without supplemental oxygen. - The results of ED evaluation were discussed with the patient including possible disposition options. Patient comfortable with trial of symptom treatment and home oxygen at home. Home oxygen ordered. I discussed prescriptions and/or symptomatic cares (if applicable) including appropriate and responsible use, followup plan, and return precautions. The patient verbalized understanding and felt safe for discharge. - Patient discharged in satisfactory condition. Note: Click bubbles or prepopulated ron in note writing are used for assistance with data collection and billing and are inherently more limited than narrative and other text portions of this note. Please use narrative for additional clinical history and defer to narrative/free test for any case of contradictory information. If information appears in only free text or click bubble it should be considered present or absent as reported. Please contact note selling underwriter for clarifications of clinical information or contradictory information. MDM is a brief summary, contradictory or erroneous seeming information should be clarified and full note should be reviewed. Vital Signs: Vital signs: Vital Signs Temperature 98.1 F 03/06/22 02:38 Pulse Rate 81 03/06/22 02:38 Respiratory Rate 23 H 03/06/22 02:38 Blood Pressure 105/69 03/06/22 02:38 Pulse Oximetry 95 03/06/22 02:38 MDM - SOB/Dyspnea Medical Decision Making 71-year-old gentleman presenting with shortness of breath. Likely history of COPD with remote history of oxygen use at home now requiring new oxygen. Patient found to have parainfluenza virus 3 likely exacerbating underlying COPD. Offered admission versus discharge. Patient discharged on home oxygen and treatment for COPD exacerbation likely secondary to viral pneumonia. Medical Records I reviewed the patient's medical records. Lab Data I reviewed the patient's lab results. : 03/05/22 21:30 03/05/22 21:30 Labs/Radiology: Radiology Impressions Chest X-Ray 03/05/22 20:35 IMPRESSION: No acute findings. Laboratory Results WBC 6.9 10^3/uL (4.0-10.0) 03/05/22 21: RBC 5.23 10^6/uL (4.1-5.3) 03/05/22 21:30 Hgb 15.3 g/dL (11.7-16.6) 03/05/22 21:30 Hct 48.1 % (42.0-52.0) 03/05/22 21:30 MCV 92.0 fl (80-94) 03/05/22 21:30 MCH 29.3 pg (28.0-34.0) 03/05/22 21:30 MCHC 31.8 g/dL (30.0-36.0) 03/05/22 21:30 RDW 14.9 % (12.1-15.1) 03/05/22 21:30 Plt Count 166 10^3/cmm (130-400) 03/05/22 21:30 MPV 10.1 fL (7.4-10.4) 03/05/22 21:30 Neut % (Auto) 79.7 % 03/05/22 21:30 Lymph % (Auto) 13.1 % 03/05/22 21:30 [place] % (Auto) 6.3 % 03/05/22 21: Eos % (Auto) 0.0 % 03/05/22 21: Baso % (Auto) 0.3 % 03/05/22 21:30 Neut # (Auto) 5.48 10^3/uL (1.8-7.7) 03/05/22 21: Lymph # (Auto) 0.9 10^3/uL (0.8-4.8) 03/05/22 21: [place] # (Auto) 0.4 10^3/uL (0.2-0.9) 03/05/22 21: Eos # (Auto) 0.0 10^3/uL (0.0-0.8) 03/05/22 21: Baso # (Auto) 0.0 10^3/uL (0.0-0.1) 03/05/22: Nucleated RBC % (auto) 0 % 03/05/22: Nucleated RBCs # 0.0 /100WBC 03/05/22 21:30 Sodium 134 mmol/L (136-145) L 03/05/22 21: Potassium 4.2 mmol/L (3.5-5.1) 03/05/22: Chloride 100 mmol/L (98-107) 03/05/22 21: Carbon Dioxide 22 mmol/L (22-29) 03/05/22 21:30 Anion Gap 16.2 (5-19) 03/05/22 21:30 BUN 9 mg/dL (8-23) 03/05/22: Creatinine 1.0 mg/dL (0.7-1.2) 03/05/22 21:30 GFR Calculation Not Reportable 03/05/22: Glucose 111 mg/dL (65-115) 03/05/22 21: Calculated Osmolality 277 mOsm/kg (285-295) L 05/19/22 21:30 Lactate 1.0 mmol/L (0.5-2.2) 03/05/22 21:30 Calcium 8.2 mg/dL (8.5-10.5) L 03/05/22 21:30 Total Bilirubin 0.4 mg/dL (0.15-1.2) 03/05/22 21:30 AST 22 U/L (0-40) 03/05/22 21:30 ALT 12 U/L (0-41) 03/05/22 21:30 Alkaline Phosphatase 93 IU/L (40-130) 03/05/22 21:30 Troponin T Baseline 15 ng/L (0-15) 03/05/22 21:30 Troponin T 120 Minute 14.30 ng/L (0-15) 03/05/22 23:10 Delta Troponin T -0.70 ABS# (0-10) L 03/05/22 23:10 C-Reactive Protein 90.9 mg/L (0.0-4.9) H 03/05/22 21:30 NT-Pro-B Natriuret Pep 817 pg/mL (0-125) H 03/05/22 21:30 Total Protein 8.1 g/dL (6.6-8.7) 03/05/22 21:30 Albumin 4.0 g/dL (3.5-5.2) 03/05/22 21:30 Globulin 4.1 g/dL (1.3-4.6) 03/05/22 21:30 Procalcitonin 0.10 ng/mL (0-0.5) 03/05/22 21:30 Coronavirus 229E (PCR) Not detected (NOT DETECT) 03/05/22 21:40 Parainfluenza 1 (PCR) Not detected (NOT DETECT) 03/06/22 00:05 Parainfluenza 2 (PCR) Not detected (NOT DETECT) 03/06/22 00:05 Parainfluenza 3 (PCR) Detected (NOT DETECT) A 03/06/22 00:05 Parainfluenza 4 (PCR) Not detected (NOT DETECT) 03/06/22 00:05 SARS-CoV-2 (PCR) Not detected (NOT DETECT) 03/05/22 21:40 Discharge Plan Discharge Patient Disposition: Home Clinical Impression: Parainfluenza virus pneumonia, Hypoxia, COPD (chronic obstructive pulmonary disease), Acute respiratory failure with hypoxia Condition: Stable Prescriptions: New albuterol sulfate 90 mcg/actuation HFA aerosol inhaler 2 inh inhalation Q4H PRN (Reason: shortness of breath or wheezing) Qty: 8.5 0RF prednisone 50 mg tablet 50 mg PO DAILY 5 Days Qty: 5 0RF doxycycline hyclate 100 mg tablet 100 mg PO BID 10 Days Qty: 20 0RF No Action Eliquis 5 mg tablet 5 mg PO BID Qty: 60 11RF atorvastatin 40 mg tablet 40 mg PO DAILY Qty: 90 3RF tamsulosin 0.4 mg capsule 0.4 mg PO BID Qty: 60 12RF Protonix 40 mg tablet,delayed release (DR/EC) 40 mg PO DAILY 30 Days Qty: 30 3RF Discharge Orders: Discharge ED (Routine); Ordered 03/06/22 Ordered By: Gabriel Guevara Other Ambulatory Orders: DME: Oxygen (Order) Location: None Selected Ordered By: Gabriel Guevara DME: Oxygen (Order) Location: None Selected Ordered By: Gabriel Guevara Referrals: Johny Napoles MD [Primary Care Provider] - Patient Instructions: Viral Pneumonia (ED), Using Oxygen at Home (ED) Activity Restrictions/Additional Instructions: Thank you for visiting the emergency department. You were seen and evaluated for shortness of breath. Found to have parainfluenza virus which is a virus that likely explains her symptoms. Given history of oxygen use and likely underlying lung disease you will be given treatment for exacerbation of underlying lung disease. Please follow-up with your primary care provider. Please return to the emergency department for worsening symptoms or anything else that you are concerned about a feel needs emergency department evaluation. Coding Level of Care Code ED [place] Program Coordinator for Marcella Fwgonzales Exam Comprehensive
--- NOTE | 2022-03-05 21:28 | ECG_ITS ---
[facility] Test Date: 2022-03-05 Pat Name: Jt Mccoy Department: Room: Gender: Male Crew Director: : 1950 Requested By: Gabriel Guevara Order Number: [id number] Donal MD: Ant Arroyo M.D. Measurements Intervals [place] Rate: 78 P: 79 VT: 152 QRS: 64 QRSD: 88 T: 69 QT: 376 QTc: 428 Interpretive Statements SINUS RHYTHM POSSIBLE RIGHT VENTRICULAR CONDUCTION DELAY [RSR (QR) IN V1/V2] Compared to ECG 12/12/2018 22:56:14 No significant changes Electronically Signed On 03-05-2022 22:51:52 CDT by Ant Arrooy M.D. [id number]
[2022-03-05 21:43] LABS: Basophils % 0.3 %; Hematocrit 48.1 % (42.0-52.0); Hemoglobin 15.3 g/dL (11.7-16.6); Lymphocytes # 0.9 10^3/uL (0.8-4.8); Lymphocytes % 13.1 %; Mean Corpuscular HGB Conc 31.8 g/dL (30.0-36.0); Mean Corpuscular Hemoglobin 29.3 pg (28.0-34.0); Mean Platelet Volume 10.1 fL (7.4-10.4); Monocytes # 0.4 10^3/uL (0.2-0.9); Monocytes % 6.3 %; Neutrophils # 5.48 10^3/uL (1.8-7.7); Neutrophils % 79.7 %; Nucleated Red Blood Cells % 0 %; Platelet Count 166 10^3/cmm (130-400); Red Blood Count 5.23 10^6/uL (4.1-5.3); Red Cell Distribution Width 14.9 % (12.1-15.1); White Blood Count 6.9 10^3/uL (4.0-10.0)
[2022-03-05 22:05] LABS: Troponin(5th) Baseline 15 ng/L (0-15)
[2022-03-05 22:08] VITALS: PULSE 83; RESP 20; O2SAT 94
[2022-03-05 22:13] VITALS: PULSE 89
[2022-03-05 22:13] LABS: NT Pro B Type Natriuretic Pept 817 pg/mL (0-125)
[2022-03-05] MEDS: ipratropium-albuterol 3 mL Neb INHALATION (22:13)
[2022-03-05 22:24] LABS: Alanine Aminotransferase 12 U/L (0-41); Alkaline Phosphatase 93 IU/L (40-130); Anion Gap 16.2 (5-19); Aspartate Amino Transferase 22 U/L (0-40); Blood Urea Nitrogen 9 mg/dL (8-23); C Reactive Protein 90.9 mg/L (0.0-4.9); Calcium 8.2 mg/dL (8.5-10.5); Carbon Dioxide 22 mmol/L (22-29); Chloride 100 mmol/L (98-107); Globulin 4.1 g/dL (1.3-4.6); Glucose 111 mg/dL (65-115); Osmolality Calculated 277 mOsm/kg (285-295); Potassium 4.2 mmol/L (3.5-5.1); Sodium 134 mmol/L (136-145); Total Bilirubin 0.4 mg/dL (0.15-1.2); Total Protein 8.1 g/dL (6.6-8.7)
--- NOTE | 2022-03-05 23:28 | ECG_ITS ---
[facility] Test Date: 2022-03-05 Pat Name: Jt Mccoy Department: Room: Gender: Male Front Desk Clerk: : 1950 Requested By: Gabriel Guevara Order Number: [id number] Donal MD: Jenni Arthur M.D. Measurements Intervals [place] Rate: 82 P: 70 DC: 165 QRS: 61 QRSD: 77 T: 74 QT: 374 QTc: 439 Interpretive Statements SINUS RHYTHM POSSIBLE RIGHT VENTRICULAR CONDUCTION DELAY [RSR (QR) IN V1/V2] Compared to ECG 03/05/2022 21:38:38 No significant changes Electronically Signed On 03-06-2022 16:40:09 CDT by Jenni Arthur M.D. [id number] f
[2022-03-05 23:34] LABS: Adenovirus Not Detected (NOT DETECT); Chlamydia Pneumoniae Not Detected (NOT DETECT); Coronavirus 229E,HKU1,NL63,OC4 Not Detected (NOT DETECT); Human Metapneumovirus Not Detected (NOT DETECT); Human Rhinovirus/Enterovirus Not Detected (NOT DETECT); Influenza A Not Detected (NOT DETECT); Influenza A H1 Not Detected (NOT DETECT); Influenza A H1-2009 Not Detected (NOT DETECT); Influenza A H3 Not Detected (NOT DETECT); Influenza B Not Detected (NOT DETECT); Mycoplasma Pneumoniae Not Detected (NOT DETECT); Parainfluenza Virus Type 1 Not Detected (NOT DETECT); Parainfluenza Virus Type 2 Not Detected (NOT DETECT); Parainfluenza Virus Type 3 Detected (NOT DETECT); Parainfluenza Virus Type 4 Not Detected (NOT DETECT); Respiratory Syncytial Virus A Not Detected (NOT DETECT); Respiratory Syncytial Virus B Not Detected (NOT DETECT); SARS-COV-2 Not Detected (NOT DETECT)
[2022-03-06 00:05] LABS: Parainfluenza Virus Type 1 Not Detected (NOT DETECT); Parainfluenza Virus Type 2 Not Detected (NOT DETECT); Parainfluenza Virus Type 3 Detected (NOT DETECT); Parainfluenza Virus Type 4 Not Detected (NOT DETECT); Results from Genmark
[2022-03-06 00:30] VITALS: O2SAT 88; O2SAT 91; O2SAT 94
[2022-03-06 00:41] VITALS: PULSE 76; RESP 24; O2SAT 97
[2022-03-06 00:45] VITALS: PULSE 82
[2022-03-06] MEDS: doxycycline 100 mg Tablet PO (01:34)
[2022-03-06] MEDS: predniSONE 20 mg Tablet 40 MG PO (01:34)
[2022-03-06 01:35] VITALS: BP 100/53; PULSE 83; RESP 18; O2SAT 94
[2022-03-06 02:38] VITALS: BP 105/69; PULSE 81; RESP 23; TEMP 36.7; O2SAT 95
== END 2022-03-06 02:40 | disposition home or self-care (01) ==
PROVIDERS: Emergency Provider Emergency Medicine; PCP Family Medicine Adult Medicine
DX: J12.2 Parainfluenza virus pneumonia (principal); J44.0 Chronic obstructive pulmonary disease with (acute) lower respiratory infection; J44.1 Chronic obstructive pulmonary disease with (acute) exacerbation; J96.01 Acute respiratory failure with hypoxia; F17.210 Nicotine dependence, cigarettes, uncomplicated; Z79.01 Long term (current) use of anticoagulants
CPT/HCPCS: 71045; 80053; 83605; 83880; 84145; 84484; 85025; 86140; 87631; 87635; 93005; 94640; 99284; J7512; J7611

== ENCOUNTER → 2022-05-21 14:54 | Outpatient (BNVA) | payer MEDICARE, SELFPAY | PROVIDERS: PCP Family Medicine Adult Medicine; Visit Provider Internal Medicine | DX: I73.9 Peripheral vascular disease, unspecified (principal); I11.0 Hypertensive heart disease with heart failure; I50.32 Chronic diastolic (congestive) heart failure | CPT/HCPCS: 99214 ==

== ENCOUNTER 2022-07-21 12:49 | Outpatient (CLI) | payer MEDICARE, SELFPAY ==
--- NOTE | 2022-07-21 13:00 | USCV_ITS ---
Jt Mccoy Age: 71 Gender: M : 1950 Exam Date: 07/21/2022 13:10 Ordering Phys: Ant Arroyo M.D ([email or web address]) Technologist: Norman Barragan [place] [facility] [place]: HISTORY: lt leg ablation of gsaph PROCEDURES: Bilateral duplex Venous Insufficiency study of the Deep and Superficial systems was carried out according to normal protocol with the patient in supine positon for deep system and dependent position for the superficial system. FINDINGS: All deep veins demonstrated compressibility without evidence of intraluminal thrombus or increased echogenicity. Spectral analysis of Doppler signals demonstrates normal response to compression maneuvers indicating patency without obstruction. There is significant superficial reflux on the right leg. There is significant deep vein reflux on the rt leg. Most of the lt gspah has been ablated CONCLUSIONS 1. No evidence of DVT in the above-mentioned identifiable veins. 2. No significant venous reflux was noted in the deep veins in the right side. Significant venous reflux of greater than 500 ms was noted at the proximal greater saphenous vein segment. The venous segment was greater than 1 cm deep with a diameter of 0.76 cm at this level. 3. No significant venous reflux was noted at the deep veins on the left side. Superficial venous reflux of greater than 500 ms were noted at the saphenofemoral junction and greater saphenous vein distal to the saphenofemoral junction. The venous segments were greater than 1 cm deep from the surface. The diameter of the venous segments were 1 cm and 0.66 cm respectively at these levels. Dr Emily Schwartz MD [facility] (Electronically Signed) Final Date: 23 July 2022 20:56 S
== END 2022-07-21 12:50 | disposition home or self-care (01) ==
PROVIDERS: PCP Family Medicine Adult Medicine; Visit Provider Internal Medicine
DX: I73.9 Peripheral vascular disease, unspecified (principal); M79.605 Pain in left leg; M79.604 Pain in right leg
CPT/HCPCS: 93970

== ENCOUNTER 2022-07-29 14:05 | Outpatient (CLI) | payer MEDICARE, SELFPAY ==
--- NOTE | 2022-07-29 14:15 | USR_ITS ---
PROCEDURE INFORMATION: Exam: US Duplex Lower Extremity Arteries Exam date and time: 07/29/2022 2:23 PM Age: 71 years old Clinical indication: Pain; Leg, lower; Bilateral; Additional info: Leg pain TECHNIQUE: Imaging protocol: Real-time ultrasound scan of the arteries of the bilateral lower extremities with 2-D alfred scale, color Doppler flow and spectral waveform analysis. Images documented and saved. COMPARISON: US renal BI* [id number] 08/28/2020 1:18 PM FINDINGS: Right common femoral artery: No occlusion or significant stenosis. Normal waveform. Right superficial femoral artery: The mid and distal aspect do not show flow. The proximal SFA shows biphasic waveform. PSV 119 cm/s Right popliteal artery: Severe diffuse nonocclusive disease. PSV 11 cm/s . Right calf/foot arteries: Dorsalis pedis , and ORIGINATION SPECIALIST show low amplitude monophasic waveforms 25 cm/s, and 42 cm/s respectively. These findings are consistent with severe diffuse nonocclusive disease Left common femoral artery: Moderate stenosis Monophasic waveform. PSV 135 cm/s Left superficial femoral artery: Moderate stenosis is seen 50-69% stenosis. Monophasic waveform . Proximal 99 cm/s, mid 133 cm/s, distal 147 cm/s oval are Left popliteal artery: There is diffuse nonocclusive disease. Monophasic waveform. PSV 79 cm/s . Left calf/foot arteries: There is diffuse nonocclusive disease in the trifurcation vessels. ORIGINATION SPECIALIST has monophasic waveform. PSV 73 cm/s DPA shows trickle flow PSV 12 cm/s US/[place] [id number] IMPRESSION: 1. Severe diffuse nonocclusive disease in the bilateral ORIGINATION SPECIALIST and dorsalis pedis. 2. Complete occlusion in the of mid and distal right SFA. 3. Left SFA 50-69% stenosis. 4. Left popliteal shows severe diffuse nonocclusive disease. 5. Left common femoral artery shows moderate stenosis
== END 2022-07-29 14:06 | disposition home or self-care (01) ==
LOC: RAD 14:05
PROVIDERS: PCP Family Medicine Adult Medicine; Visit Provider Internal Medicine
DX: I70.292 Other atherosclerosis of native arteries of extremities, left leg (principal)
CPT/HCPCS: 93925

== ENCOUNTER → 2023-02-25 11:13 | Outpatient (BNVA) | payer MEDICARE, SELFPAY | PROVIDERS: PCP Family Medicine Adult Medicine; Visit Provider Family Medicine Adult Medicine | DX: N40.1 Benign prostatic hyperplasia with lower urinary tract symptoms (principal); I10 Essential (primary) hypertension; E78.1 Pure hyperglyceridemia | CPT/HCPCS: 80053; 80061; 85025; G0103 ==

== ENCOUNTER → 2024-02-17 14:17 | Outpatient (BNVA) | payer MEDICARE, SELFPAY | PROVIDERS: PCP Family Medicine Adult Medicine; Referring Provider Family Medicine Adult Medicine; Visit Provider Physician Assistant | DX: M17.11 Unilateral primary osteoarthritis, right knee; Z46.89 Encounter for fitting and adjustment of other specified devices; M25.561 Pain in right knee; G89.29 Other chronic pain | CPT/HCPCS: 20610; 73560; 73565; 97760; 99203; J3301; L1851 ==

== ENCOUNTER 2024-02-17 15:28 | Outpatient (CLI) | payer MEDICARE, SELFPAY | END 2024-02-17 15:29 | disposition home or self-care (01) | LOC: SPT 15:31 | PROVIDERS: PCP Family Medicine Adult Medicine; Visit Provider Physician Assistant | DX: Z46.89 Encounter for fitting and adjustment of other specified devices (principal); M25.561 Pain in right knee; G89.29 Other chronic pain; M17.11 Unilateral primary osteoarthritis, right knee | CPT/HCPCS: 20610; 97760; 99203; J3301; L1851 ==

== ENCOUNTER → 2024-05-23 14:10 | Outpatient (BNVA) | payer MEDICARE, SELFPAY | PROVIDERS: PCP Family Medicine Adult Medicine; Visit Provider Physician Assistant | DX: M17.11 Unilateral primary osteoarthritis, right knee (principal) | CPT/HCPCS: 99214 ==

== ENCOUNTER 2024-08-04 16:38 | Emergency (ER) | payer MEDICARE, SELFPAY ==
[2024-08-04 16:46] VITALS: BP 190/73; PULSE 112; RESP 17; TEMP 37.4; O2SAT 96; BMI 34.5
--- NOTE | 2024-08-04 17:10 | XRR_ITS ---
PROCEDURE INFORMATION: Exam: XR Chest Exam date and time: 08/04/2024 5:14 PM Age: 73 years old Clinical indication: Fever TECHNIQUE: Imaging protocol: Radiologic exam of the chest. Views: 1 view. COMPARISON: CR XR chest 1V portable [id number] 03/05/2022 8:50 PM FINDINGS: Lungs: No focal lung consolidation. Pleural spaces: No pleural effusion. No pneumothorax. Heart/Mediastinum: No cardiomegaly. Bones/joints: No acute bony abnormality. XR/XR chest 1V portable [id number] IMPRESSION: No focal lung consolidation.
--- NOTE | 2024-08-04 17:12 | ED_ITS ---
HPI - Fever 2 General: Chief Complaint: Fever Stated Complaint: Fever, High heartrate, Sore on leg poss infected Time Seen by Provider: 08/04/24 16:59 Source: patient and family Mode of arrival: wheelchair Limitations: no limitations History of Present Illness: Patient was transported emergency department [place] by his spouse. She relates that she brought her to the emergency department because he thinks he has had fever as well as has had a decreased appetite and decreased energy over the last 24 hours perhaps 48 hours. The patient denies any chest pain, shortness of breath, cough, sore throat, dysuria. He denies nausea vomiting or diarrhea. He also has recurrent venous stasis ulcers and the is also wondering if that may be a contributing factor how he is feeling that the 1 on his left leg might be infected. No known exposure to infectious disease. No known history of coronary artery disease. He does use tobacco on a regular basis. 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 No family history of blood clotting disorders. MD elicited complaint: fever and malaise Associated symptoms: Deny abdominal pain, flank pain, chest pain, diarrhea, dysuria, extremity pain, headache(s), nasal congestion, nausea or vomiting Related Data Previous Rx's Medication Instructions Recorded albuterol sulfate 90 mcg/actuation 2 inh inhalation Q4H PRN shortness 03/06/22 aerosol inhaler of breath or wheezing #8.5 grams tamsulosin 0.4 mg capsule See Rx Instructions .Route 11/23/22 .COMPLEX #180 caps niacin 500 mg tablet 500 mg PO DAILY #90 tabs 02/26/23 diclofenac sodium 1 % topical gel 4 g topical QID #100 grams 02/17/24 (Voltaren Arthritis Pain) 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 #1 ea 02/17/24 apixaban 5 mg tablet (Eliquis) 5 mg PO BID #60 tabs 05/02/24 cephalexin 500 mg capsule 500 mg PO Q6H 7 days #28 caps 08/04/24 Allergies Allergy/AdvReac Type Severity Reaction Status Date / Time Sulfa (Sulfonamide Allergy Unknown rash Verified 08/04/24 16:50 Antibiotics) lisinopril Allergy tongue and Verified 08/04/24 16:50 throat swelling Review of Systems 2 Const: Reports: fever(s) and change in appetite ENMT: Denies: throat pain, odynophagia, nasal discharge or nasal congestion Card: Reports: swelling of feet/ankles; Denies: chest pain, palpitations, irregular heart rhythm, syncope or pre-syncope Resp: Denies: dyspnea, productive cough or non-productive cough GI: Denies: abdominal pain, nausea, vomiting or diarrhea : Denies: flank pain, difficulty urinating, dysuria or urinary frequency Musc: Denies: neck pain, back pain or extremity pain Skin/Breast: Reports: changing lesions and non-healing lesions (Left lower leg) Neuro: Denies: headache(s), numbness in extremities or weakness in extremities Psych: Denies: anxiety Endo: Denies: polyuria or polydipsia Jose/Lymph: Reports: easy bruising; Denies: easy bleeding PFSH ED 2 PFSH: Medical History Elevated blood pressure reading in office with diagnosis of hypertension Chronic pain of right knee Critical limb ischemia of right lower extremity Peripheral arterial disease with history of revascularization balloon angioplasty & stent placement [facility] 09/30/2022 Dr. Smith Obesity (BMI 30.0-34.9) COPD (chronic obstructive pulmonary disease) BPH loc w urin obs/LUTS Hx of deep venous thrombosis Renal calculus, left Renal cyst, right Prostate cancer Lower urinary tract symptoms (LUTS) Ulcer of left ankle History of pulmonary embolism Hypertriglyceridemia BIRGIT (obstructive sleep apnea) ANY (generalized anxiety disorder) HTN (hypertension) Surgical History H/O esophagogastroduodenoscopy (10/03/21) History of umbilical hernia repair Status post colonoscopy History of prostate biopsy S/P lymph node biopsy S/P appendectomy S/P knee surgery Torn cartilage with right knee surgery and 1967 when he was in high school S/P tonsillectomy S/P routine circumcision S/P vein stripping S/P angiogram of extremity Family History Other Cancer Social History Smoking and tobacco/nicotine status: current every day tobacco/nicotine user cigarettes Packs smoked per day: 0.5 Alcohol intake: never Substance/Drug Use: never Adopted: No Caregiver/support person: No Lives independently: No Household members: spouse Marital status: Current occupational status: retired Physical Exam 2 Narrative: EXAM NARRATIVE: He is elderly and overweight gentleman who moves slowly from wheelchair to examination table. Answers questions readily and appropriately. Const: COMMON NORMALS: no acute distress, patient oriented x3 and alert G ENERAL APPEARANCE: cooperative NUTRITIONAL APPEARANCE: overweight HENMT: COMMON NORMALS: normocephalic, Normal nasal mucous membranes and turbinates present, moist oral mucous membranes and oropharynx normal HEAD & SCALP: normocephalic FACE & SINUS: normal facial exam and face symmetric N OSE: Normal nasal mucous membranes and turbinates present Eye: COMMON NORMALS: Equal, round and reactive pupils present, EOMs intact bilaterally and conjunctivae normal CONJUNCTIVA: Yes conjunctivae normal P UPIL: Yes Equal, round and reactive pupils present Neck/C-Spine: COMMON NORMALS: full ROM, no lymphadenopathy, Thyroid normal and No carotid bruits THYROID: Thyroid normal Chest: COMMONS NORMALS: normal inspection of the chest Resp: COMMON NORMALS: normal respiratory effort, No retractions, No use of accessory muscles and clear to auscultation bilaterally AUSCULTATION: clear to auscultation bilaterally and diminished lung sounds Cardio: COMMON NORMALS: regular rate, regular rhythm and Peripheral pulses 2+ throughout RATE: regular rate RHYTHM: regular rhythm PERIPHERAL PULSES: Peripheral pulses 2+ throughout GI: COMMON NORMALS: Soft to palpation, non-tender and no masses INSPECTION: Yes central obesity PALPATION: Yes Soft to palpation Back/Pelvis: COMMON NORMALS: thoracic and lumbar spine normal to inspection, no thoracic nor lumbar tenderness and straight leg raise negative bilaterally Extremity: COMMON NORMALS: full ROM and no calf tenderness NARRATIVE EXTREMITY EXAM: He has hemosiderin pigmentation deposition subcutaneously on both lower extremities the left probably from proximal third of his lower leg distally in the right approximately distal third of his leg distally. He has dry flaky hypertrophied dermis as well. On the left medial leg he has a area of skin breakdown and ulceration measuring approximately 2 x 3 cm. It is draining clear fluids and the base is erythematous. There is no surrounding erythema or proximal lymphangitis or lymphadenopathy. Neuro: COMMON NORMALS: patient oriented x3, moves all extremities, no focal motor deficits and no sensory deficits noted SENSORIUM/ORIENTATION: Yes alert CRANIAL NERVES: Yes CN normal except as noted Skin: WOUNDS: Yes wounds noted (Left medial lower leg superior to the medial malleolus. Ulcer measuring ap) open and with surrounding erythema (Approximately 1 cm margin) Course 2 Vital Signs: Vital signs: Vital Signs Temperature 99.4 F 08/04/24 16:46 Pulse Rate 95 08/04/24 18:04 Respiratory Rate 20 H 08/04/24 18:04 Blood Pressure 151/65 08/04/24 18:04 Pulse Oximetry 91 08/04/24 18:04 Oxygen Delivery Me thod Room Air 08/04/24 18:04 MDM - Fever Medical Decision Making This patient presented as noted in the HPI. There was concern of possible occult fever. There was no history of known infectious disease exposure and no other symptoms noted by patient and spouse. Does have a chronic ulcer on his left lower inner leg. Clinical examination was only notable for a approximately 2 x 3 cm draining erythematous based ulcer with some mild surrounding erythema in the left medial distal leg. Evaluation initially included blood count chemistries imaging COVID testing urinalysis to ensure no other obvious etiologies to his fever. Although his evaluations were reassuring other than he did have a leukocytosis. Chest x- ray revealed no evidence of pneumonia and urinalysis was negative for any findings of infection. His abdominal examination was totally nontender alk phos but total bili and transaminases were also normal as well. Current clinical picture suggests possible skin sources potential source of his infection. He is certainly clinically stable at this time with reassuring vital signs and suitable for outpatient management. This was discussed with the patient and spouse who were amenable to this course of therapy and will be prescribed set up first generation cephalosporin. We also reviewed return precautions. Lab Data I reviewed the patient's lab results. 08/04/24 17:20 08/04/24 17:20 Radiology Impressions Chest X-Ray 08/04/24 17:10 IMPRESSION: No focal lung consolidation. Laboratory Results WBC 13.37 10^3/uL (3.29-11.43) H 08/04/24 17:20 RBC 5.60 10^6/uL (3.85-5.65) 08/04/24 17:20 Hgb 16.40 g/dL (11.27-16.99) 08/04/24 17:20 Hct 50.9 % (37-53) 08/04/24 17:20 MCV 90.9 fl (82-101) 08/04/24 17:20 MCH 29.3 pg (27-33) 08/04/24 17:20 MCHC 32.2 g/dL (30-55) 08/04/24 17:20 RDW 13.5 % (12.1-15.1) 08/04/24 17:20 Plt Count 212 10^3/cmm (157-399) 08/04/24 17:20 MPV 9.6 fL (7.4-10.4) 08/04/24 17:20 Neut % (Auto) 91.0 % 08/04/24 17:20 Lymph % (Auto) 4.8 % 08/04/24 17:20 [place] % (Auto) 3.1 % 08/04/24 17:20 Eos % (Auto) 0.3 % 08/04/24 17:20 Baso % (Auto) 0.2 % 08/04/24 17:20 Neut # (Auto) 12.17 10^3/uL (1.8-7.7) H 08/04/24 17:20 Lymph # (Auto) 0.6 10^3/uL (0.8-4.8) L 08/04/24 17:20 [place] # (Auto) 0.4 10^3/uL (0.2-0.9) 08/04/24 17:20 Eos # (Auto) 0.0 10^3/uL (0.0-0.8) 08/04/24 17:20 Baso # (Auto) 0.0 10^3/uL (0.0-0.1) 08/04/24 17:20 Nucleated RBC % (auto) 0 % 08/04/24 17:20 Nucleated RBCs # 0.0 /100WBC 08/04/24 17:20 Sodium 138 mmol/L (136-145) 08/04/24 17:20 Potassium 4.5 mmol/L (3.5-5.1) 08/04/24 17:20 Chloride 103 mmol/L (98-107) 08/04/24 17:20 Carbon Dioxide 23 mmol/L (22-29) 08/04/24 17:20 Anion Gap 16.5 (5-19) 08/04/24 17:20 BUN 16 mg/dL (8-23) 08/04/24 17:20 Creatinine 1.2 mg/dL (0.7-1.2) 08/04/24 17:20 GFR Calculation Not Reportable 08/04/24 17:20 Glucose 159 mg/dL (65-115) H 08/04/24 17:20 Calculated Osmolality 291 mOsm/kg (285-295) 08/04/24 17:20 Calcium 9.0 mg/dL (8.5-10.5) 08/04/24 17:20 Total Bilirubin 0.5 mg/dL (0.15-1.2) 08/04/24 17:20 AST 14 U/L (0-40) 08/04/24 17:20 ALT 12 U/L (0-41) 08/04/24 17:20 Alkaline Phosphatase 102 U/L (40-130) 08/04/24 17:20 Total Protein 8.0 g/dL (6.6-8.7) 08/04/24 17:20 Albumin 4.0 g/dL (3.5-5.2) 08/04/24 17:20 Globulin 4.0 g/dL (1.3-4.6) 08/04/24 17:20 Lipase 24 U/L (13-60) 08/04/24 17:20 Urine Color Yellow (Yellow) 08/04/24 17:41 Urine Appearance Clear (CLEAR) 08/04/24 17:41 Urine pH 5.0 (5-7) 08/04/24 17:41 Ur Specific [place] 1.019 (1.005-1.030) 08/04/24 17:41 Urine Protein 1+ (Negative) A 08/04/24 17:41 Urine Glucose (UA) Negative (Normal) 08/04/24 17:41 Urine Ketones Negative (Negative) 08/04/24 17:41 Urine Blood 3+ (Negative) A 08/04/24 17:41 Urine Nitrate Negative (Negative) 08/04/24 17:41 Urine Bilirubin Negative (Negative) 08/04/24 17:41 Urine Urobilinogen 1.0 mg/dL (Negative) 08/04/24 17:41 Ur Leukocyte Esterase Negative (Negative) 08/04/24 17:41 Urine RBC 6-10 /hpf (0-2) 08/04/24 17:41 Urine WBC 0-5 /hpf (0-5) 08/04/24 17:41 Ur Squamous Epith Cells 0-5 /hpf (0-5) 08/04/24 17:41 Amorphous Sediment Not Reportable 08/04/24 17:41 Urine Bacteria None seen /hpf (NONE) 08/04/24 17:41 Hyaline Casts 3.30 /lpf 08/04/24 17:41 SARS-CoV-2 Ag (Rapid) negative (Negative) 08/04/24 17:42 All radiology interpretation(s) finalized by discharge EKG Data EKG 1: I personally reviewed and interpreted this EKG as follows: Interpretation: Review of resting EKG reveals ventricular rate of 99 bpm. Consistent with sinus rhythm. CO interval, QRS duration, corrected QT interval normal. Normal axis. 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 Eliquis 5 mg tablet 5 mg PO BID Qty: 60 2RF albuterol sulfate 90 mcg/actuation HFA aerosol inhaler 2 inh inhalation Q4H PRN (Reason: shortness of breath or wheezing) Qty: 8.5 0RF Discharge Orders: Discharge ED (Routine); Ordered 08/04/24 Ordered By: Gary López Referrals: Johny Napoles MD [Primary Care Provider] - Discharge Diet: Advance as tolerated Discharge Activity: Increase activity as tolerated Patient Instructions: Opioid Safety, Pain Management Activity Restrictions/Additional Instructions: As discussed while you are in the emergency department we have prescribed an antibiotic to help treat suspected infection of his left lower leg. He should take this medication 4 times daily until is completely finished. Also recommend daily wound care with soap and water and applying a nonstick or Telfa style bandage over that ulcer. He should follow-up with his regular doctor in the next 72 to 96 hours for reevaluation and further treatment as indicated. If it anytime his symptoms worsen or new symptoms develop or he is not continuing to improve he should return to this or the nearest emergency department for reevaluation. Coding Level of Care Code ED Dumper Operator for Marcella Rivera
--- NOTE | 2024-08-04 17:24 | ECG_ITS ---
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
[2024-08-04 17:28] LABS: Basophils % 0.2 %; Eosinophils % 0.3 %; Hematocrit 50.9 % (37-53); Lymphocytes # 0.6 10^3/uL (0.8-4.8); Lymphocytes % 4.8 %; Mean Corpuscular HGB Conc 32.2 g/dL (30-55); Mean Corpuscular Hemoglobin 29.3 pg (27-33); Mean Corpuscular Volume 90.9 fl (82-101); Mean Platelet Volume 9.6 fL (7.4-10.4); Monocytes # 0.4 10^3/uL (0.2-0.9); Monocytes % 3.1 %; Neutrophils # 12.17 10^3/uL (1.8-7.7); Nucleated Red Blood Cells % 0 %; Platelet Count 212 10^3/cmm (157-399); Red Cell Distribution Width 13.5 % (12.1-15.1); White Blood Count 13.37 10^3/uL (3.29-11.43)
[2024-08-04 17:51] LABS: Alanine Aminotransferase 12 U/L (0-41); Alkaline Phosphatase 102 U/L (40-130); Anion Gap 16.5 (5-19); Aspartate Amino Transferase 14 U/L (0-40); Blood Urea Nitrogen 16 mg/dL (8-23); Carbon Dioxide 23 mmol/L (22-29); Chloride 103 mmol/L (98-107); Creatinine Clr Calc Pharmacy 69.8347; Glucose 159 mg/dL (65-115); Lipase 24 U/L (13-60); Osmolality Calculated 291 mOsm/kg (285-295); Potassium 4.5 mmol/L (3.5-5.1); Sodium 138 mmol/L (136-145); Total Bilirubin 0.5 mg/dL (0.15-1.2)
[2024-08-04 17:57] LABS: Bilirubin Urine Negative (Negative); Blood Urine 3+ (Negative); Glucose Urine UA Negative (Normal); Ketones Urine Negative (Negative); Leukocyte Esterase Urine Negative (Negative); Nitrate Urine Negative (Negative); Protein Urine 1+ (Negative); Specific Gravity, Urine 1.019 (1.005-1.030); Urine Appearance Clear (CLEAR); Urine Color Yellow (Yellow)
[2024-08-04 18:02] LABS: Add Urine Microscopic? YES; Bacteria Urine None Seen /hpf; Squamous Epithelial Cell Urine 0-5 /hpf (0-5); WBC Urine 0-5 /hpf (0-5)
[2024-08-04 18:04] VITALS: BP 151/65; PULSE 95; RESP 20; O2SAT 91
[2024-08-04 18:11] LABS: SARS Covid-2 Antigen negative (Negative)
[2024-08-04] MEDS: cephALEXin 500 mg Capsule PO (19:13)
[2024-08-04 19:26] VITALS: BP 155/67; PULSE 98; RESP 18; O2SAT 96
== END 2024-08-04 19:29 | disposition home or self-care (01) ==
PROVIDERS: Emergency Provider Emergency Medicine; PCP Family Medicine Adult Medicine
DX: I83.028 Varicose veins of left lower extremity with ulcer other part of lower leg (principal); L97.829 Non-pressure chronic ulcer of other part of left lower leg with unspecified severity; L03.116 Cellulitis of left lower limb; F17.210 Nicotine dependence, cigarettes, uncomplicated; J44.9 Chronic obstructive pulmonary disease, unspecified; Z85.46 Personal history of malignant neoplasm of prostate; I10 Essential (primary) hypertension; Z11.52 Encounter for screening for COVID-19
CPT/HCPCS: 36415; 71045; 80053; 81001; 83690; 85025; 87426; 93005; 99285

== ENCOUNTER → 2024-09-07 14:42 | Outpatient (BNVA) | payer MEDICARE, SELFPAY | PROVIDERS: PCP Family Medicine Adult Medicine; Visit Provider Internal Medicine | DX: I73.9 Peripheral vascular disease, unspecified (principal); I11.0 Hypertensive heart disease with heart failure; I50.32 Chronic diastolic (congestive) heart failure; F17.210 Nicotine dependence, cigarettes, uncomplicated | CPT/HCPCS: 99214 ==

== ENCOUNTER 2024-10-16 21:52 | Emergency (ER) | payer MEDICARE, SELFPAY ==
[2024-10-16 22:10] VITALS: BP 148/73; PULSE 79; RESP 18; TEMP 36.9; O2SAT 96; BMI 35.2
[2024-10-16 22:23] VITALS: BP 171/81; PULSE 85; RESP 16; O2SAT 95
--- NOTE | 2024-10-16 22:27 | W.ED.WOUNDLC ---
HPI - Wound/Laceration General: Chief Complaint: Wound/Laceration Stated Complaint: Leg Ulcerated Time Seen by Provider: 10/16/24 22:21 History of Present Illness: Patient presents to the ER with a chronic wound on his left lower extremity on the inside of his medial malleoli region. verbalized showed him to come in because she thought it was draining purulent drainage and odor. He has had several of these before and has had seen the wound clinic here. His family practice doc out and Huma Heard is post to be referring him to the wound clinic but he has not heard any from them. 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 #1 ea 02/17/24 apixaban 5 mg tablet (Eliquis) 5 mg PO BID #60 tabs 08/11/24 Allergies Allergy/AdvReac Type Severity Reaction Status Date / Time Sulfa (Sulfonamide Allergy Unknown rash Verified 09/07/24 15:00 Antibiotics) lisinopril Allergy tongue and Verified 09/07/24 15:00 throat swelling Review of Systems General: Reports: 10 or more systems reviewed and unremarkable except in HPI and below PFSH ED PFSH: Medical History Elevated blood pressure reading in office with diagnosis of hypertension Chronic pain of right knee Critical limb ischemia of right lower extremity Peripheral arterial disease with history of revascularization balloon angioplasty & stent placement [facility] 09/30/2022 Dr. Smith Obesity (BMI 30.0-34.9) COPD (chronic obstructive pulmonary disease) BPH loc w urin obs/LUTS Hx of deep venous thrombosis Renal calculus, left Renal cyst, right Prostate cancer Lower urinary tract symptoms (LUTS) Ulcer of left ankle History of pulmonary embolism Hypertriglyceridemia BIRGIT (obstructive sleep apnea) ANY (generalized anxiety disorder) HTN (hypertension) Surgical History H/O esophagogastroduodenoscopy (10/03/21) History of umbilical hernia repair Status post colonoscopy History of prostate biopsy S/P lymph node biopsy S/P appendectomy S/P knee surgery Torn cartilage with right knee surgery and 1967 when he was in high school S/P tonsillectomy S/P routine circumcision S/P vein stripping S/P angiogram of extremity Family History Other Cancer Social History Smoking and tobacco/nicotine status: current every day tobacco/nicotine user cigarettes Packs smoked per day: 0.5 Alcohol intake: never Substance/Drug Use: never Adopted: No Caregiver/support person: No Lives independently: No Household members: spouse Marital status: Current occupational status: retired Physical Exam Const: COMMON NORMALS: no acute distress, average body habitus, patient oriented x3, no limitations, healthy appearing, alert and well nourished HENMT: COMMON NORMALS: normocephalic, atraumatic, hearing grossly normal bilaterally, external ears normal, Normal external nose present and moist oral mucous membranes HEAD & SCALP: normocephalic and atraumatic NOSE: Normal external nose present EXTERNAL EAR: Yes external ears normal Neck/C-Spine: COMMON NORMALS: no JVD Chest: COMMONS NORMALS: normal inspection of the chest and normal palpation of entire chest wall Resp: COMMON NORMALS: normal respiratory effort, No retractions, No use of accessory muscles and clear to auscultation bilaterally AUSCULTATION: clear to auscultation bilaterally Cardio: COMMON NORMALS: no JVD, regular rate, regular rhythm, S1 normal heart sound present, S2 normal heart sound present, No gallops present (Cardio), No clicks present (Cardio), No murmurs present (Cardio) and No rub (Cardio) RATE: regular rate RHYTHM: regular rhythm HEART SOUNDS: S1 normal heart sound present and S2 normal heart sound present GI: COMMON NORMALS: Normal to inspection, nondistended, normoactive bowel sounds present, Soft to palpation, non-tender, No hepatosplenomegaly present and no masses PALPATION: Yes Soft to palpation and Yes No hepatosplenomegaly present Extremity: NARRATIVE EXTREMITY EXAM: Dry scaly skin bilateral lower extremities, left lower extremity around medial malleoli region ulcerative type skin lesion no obvious purulent drainage or odor. Neuro: COMMON NORMALS: patient oriented x3 SENSORIUM/ORIENTATION: Yes alert Course Vital Signs: Vital signs: Vital Signs Temperature 98.5 F 10/16/24 22:10 Pulse Rate 85 10/16/24 22:23 Respiratory Rate 16 10/16/24 22:23 Blood Pressure 171/81 10/16/24 22:23 Pulse Oximetry 95 10/16/24 22:23 Oxygen Delivery Me thod Room Air 10/16/24 22:23 MDM - Wound/Laceration Medical Decision Making Lab work included CBC and CMP was obtained which was unremarkable. Patient has been referred to case management to get appointment for the wound care. Patient be discharged home. Medical Records I reviewed the patient's medical records. Lab Data I reviewed the patient's lab results. 10/16/24 22:42 10/16/24 22:42 Laboratory Results WBC 7.02 10^3/uL (3.29-11.43) 10/16/24 22:42 RBC 4.97 10^6/uL (3.85-5.65) 10/16/24 22:42 Hgb 14.60 g/dL (11.27-16.99) 10/16/24 22:42 Hct 45.0 % (37-53) 10/16/24 22:42 MCV 90.5 fl (82-101) 10/16/24 22:42 MCH 29.4 pg (27-33) 10/16/24 22:42 MCHC 32.4 g/dL (30-55) 10/16/24 22:42 RDW 14.5 % (12.1-15.1) 10/16/24 22:42 Plt Count 243 10^3/cmm (157-399) 10/16/24 22:42 MPV 9.5 fL (7.4-10.4) 10/16/24 22:42 Neut % (Auto) 65.0 % 10/16/24 22:42 Lymph % (Auto) 21.8 % 10/16/24 22:42 [place] % (Auto) 8.8 % 10/16/24 22:42 Eos % (Auto) 2.8 % 10/16/24 22:42 Baso % (Auto) 0.7 % 10/16/24 22:42 Neut # (Auto) 4.56 10^3/uL (1.8-7.7) 10/16/24 22:42 Lymph # (Auto) 1.5 10^3/uL (0.8-4.8) 10/16/24 22:42 [place] # (Auto) 0.6 10^3/uL (0.2-0.9) 10/16/24 22:42 Eos # (Auto) 0.2 10^3/uL (0.0-0.8) 10/16/24 22:42 Baso # (Auto) 0.1 10^3/uL (0.0-0.1) 10/16/24 22:42 Nucleated RBC % (auto) 0 % 10/16/24 22:42 Nucleated RBCs # 0.0 /100WBC 10/16/24 22:42 Sodium 138 mmol/L (136-145) 10/16/24 22:42 Potassium 3.9 mmol/L (3.5-5.1) 10/16/24 22:42 Chloride 101 mmol/L (98-107) 10/16/24 22:42 Carbon Dioxide 25 mmol/L (22-29) 10/16/24 22:42 Anion Gap 15.9 (5-19) 10/16/24 22:42 BUN 16 mg/dL (8-23) 10/16/24 22:42 Creatinine 1.2 mg/dL (0.7-1.2) 10/16/24 22:42 GFR Calculation Not Reportable 10/16/24 22:42 Glucose 126 mg/dL (65-115) H 10/16/24 22:42 Calculated Osmolality 289 mOsm/kg (285-295) 10/16/24 22:42 Calcium 9.1 mg/dL (8.5-10.5) 10/16/24 22:42 Total Bilirubin 0.3 mg/dL (0.15-1.2) 10/16/24 22:42 AST 15 U/L (0-40) 10/16/24 22:42 ALT 11 U/L (0-41) 10/16/24 22:42 Alkaline Phosphatase 95 U/L (40-130) 10/16/24 22:42 Total Protein 7.5 g/dL (6.6-8.7) 10/16/24 22:42 Albumin 3.7 g/dL (3.5-5.2) 10/16/24 22:42 Globulin 3.8 g/dL (1.3-4.6) 10/16/24 22:42 No radiology studies performed this visit Discharge Plan Discharge Patient Disposition: Home Clinical Impression: Chronic wound Condition: Stable Prescriptions: No Action (DME) 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 Please continue doing the wound care and dressing the you are currently doing. You have been referred to case management they should be calling you during the next business day to help arrange an appointment sooner for wound care. If you have not heard from them within 2 business days please give us a call. Otherwise follow-up with your family practice physician within the next 7 days for further evaluation and treatment. Coding Level of Care Code ED Dormitory Supervisor for Marcella Rivera
[2024-10-16 22:51] LABS: Basophils # 0.1 10^3/uL (0.0-0.1); Basophils % 0.7 %; Eosinophils # 0.2 10^3/uL (0.0-0.8); Eosinophils % 2.8 %; Lymphocytes # 1.5 10^3/uL (0.8-4.8); Lymphocytes % 21.8 %; Mean Corpuscular HGB Conc 32.4 g/dL (30-55); Mean Corpuscular Hemoglobin 29.4 pg (27-33); Mean Corpuscular Volume 90.5 fl (82-101); Mean Platelet Volume 9.5 fL (7.4-10.4); Monocytes # 0.6 10^3/uL (0.2-0.9); Monocytes % 8.8 %; Neutrophils # 4.56 10^3/uL (1.8-7.7); Nucleated Red Blood Cells % 0 %; Platelet Count 243 10^3/cmm (157-399); Red Blood Count 4.97 10^6/uL (3.85-5.65); Red Cell Distribution Width 14.5 % (12.1-15.1); White Blood Count 7.02 10^3/uL (3.29-11.43)
[2024-10-16 23:09] LABS: Alanine Aminotransferase 11 U/L (0-41); Albumin Level 3.7 g/dL (3.5-5.2); Alkaline Phosphatase 95 U/L (40-130); Anion Gap 15.9 (5-19); Aspartate Amino Transferase 15 U/L (0-40); Blood Urea Nitrogen 16 mg/dL (8-23); Calcium 9.1 mg/dL (8.5-10.5); Carbon Dioxide 25 mmol/L (22-29); Chloride 101 mmol/L (98-107); Creatinine Clr Calc Pharmacy 70.5172; Globulin 3.8 g/dL (1.3-4.6); Glucose 126 mg/dL (65-115); Osmolality Calculated 289 mOsm/kg (285-295); Potassium 3.9 mmol/L (3.5-5.1); Sodium 138 mmol/L (136-145); Total Bilirubin 0.3 mg/dL (0.15-1.2); Total Protein 7.5 g/dL (6.6-8.7)
[2024-10-16 23:46] VITALS: BP 135/58; PULSE 75; RESP 16; O2SAT 94
--- NOTE | 2024-10-19 10:49 | DCPLANNER ---
messaged wound care for er f/u
== END 2024-10-16 23:48 | disposition home or self-care (01) ==
PROVIDERS: Emergency Provider Emergency Medicine
DX: S81.802A Unspecified open wound, left lower leg, initial encounter (principal); Z79.01 Long term (current) use of anticoagulants; F17.210 Nicotine dependence, cigarettes, uncomplicated; J44.9 Chronic obstructive pulmonary disease, unspecified; I10 Essential (primary) hypertension; C61 Malignant neoplasm of prostate; X58.XXXA Exposure to other specified factors, initial encounter
CPT/HCPCS: 80053; 85025; 99283

== ENCOUNTER → 2024-10-24 09:04 | Outpatient (BNVA) | payer MEDICARE, SELFPAY | PROVIDERS: Visit Provider Thoracic Surgery (Cardiothoracic Vascular Surgery) | DX: I96 Gangrene, not elsewhere classified (principal); I87.2 Venous insufficiency (chronic) (peripheral); L97.822 Non-pressure chronic ulcer of other part of left lower leg with fat layer exposed | CPT/HCPCS: 11042; 87070; 87176; 87205; 99203 ==

== ENCOUNTER → 2024-10-30 14:49 | Outpatient (BNVA) | payer MEDICARE, SELFPAY | PROVIDERS: Visit Provider Nurse Practitioner Family | DX: I73.9 Peripheral vascular disease, unspecified (principal); I11.0 Hypertensive heart disease with heart failure; I50.32 Chronic diastolic (congestive) heart failure; I87.9 Disorder of vein, unspecified; F17.210 Nicotine dependence, cigarettes, uncomplicated | CPT/HCPCS: 99214 ==

== ENCOUNTER → 2024-10-31 13:00 | Outpatient (BNVA) | payer MEDICARE, SELFPAY | PROVIDERS: Visit Provider Thoracic Surgery (Cardiothoracic Vascular Surgery) | DX: I96 Gangrene, not elsewhere classified (principal); I87.2 Venous insufficiency (chronic) (peripheral); L97.822 Non-pressure chronic ulcer of other part of left lower leg with fat layer exposed | CPT/HCPCS: 11042; A6248 ==

== ENCOUNTER 2024-11-03 09:18 | Outpatient (CLI) | payer MEDICARE, SELFPAY ==
--- NOTE | 2024-11-03 09:30 | USCV_ITS ---
Jt Mccoy Age: 73 Gender: M : 1950 Exam Date: 11/03/2024 09:26 Ordering Phys: Edmond Edmond MD (Andy) ([email or web address] [email or web address] Technologist: TAWANNA [place] [facility] [place]: HISTORY: PROCEDURES: FINDINGS: The Doppler examination was performed and the depth left lower extremity. Significant reflux was noted in the deep veins, involving the common femoral, femoral and popliteal veins. The reflux time where 1.62, 2.66 and 2.88 seconds respectively. Significant reflux were noted in the superficial veins involving the saphenofemoral junction, distal to the greater saphenous vein distal saphenofemoral junction, mid and distal greater saphenous vein and proximal small saphenous vein segments. These venous segments were found to be very superficial, less than 1 cm deep from the surface. The venous diameters were 1.24, 0.8, 0.62, 0.44, 0.4 and 0.32 cm respectively CONCLUSIONS 1. No evidence of DVT in the left lower extremity. 2. Significant venous reflux in the deep veins as mentioned above. 3. Significant venous reflux at multiple levels in the superficial veins. However this venous segments were found to be very superficial Dr Emily Schwartz MD [facility] (Electronically Signed) Final Date: 26 November 2024 18:15 S
== END 2024-11-03 09:19 | disposition home or self-care (01) ==
LOC: RAD 09:21
PROVIDERS: PCP Nurse Practitioner Family; Visit Provider Thoracic Surgery (Cardiothoracic Vascular Surgery)
DX: I73.9 Peripheral vascular disease, unspecified (principal); Z98.890 Other specified postprocedural states; Z86.718 Personal history of other venous thrombosis and embolism
CPT/HCPCS: 93971

== ENCOUNTER → 2024-11-14 11:00 | Outpatient (BNVA) | payer MEDICARE, SELFPAY | PROVIDERS: PCP Nurse Practitioner Family; Visit Provider Thoracic Surgery (Cardiothoracic Vascular Surgery) | DX: I96 Gangrene, not elsewhere classified (principal); I87.2 Venous insufficiency (chronic) (peripheral); L97.821 Non-pressure chronic ulcer of other part of left lower leg limited to breakdown of skin | CPT/HCPCS: 11042 ==

== ENCOUNTER 2024-11-20 07:23 | Outpatient (CLI) | payer MEDICARE, SELFPAY ==
--- NOTE | 2024-11-20 | ECG_ITS ---
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 Interpretive Statements LEXISCAN SESTAMIBI STRESS TEST Procedure: At the baseline, the blood pressure was 144/91 mmHg with a heart rate of 62 bpm. The electrocardiogram showed normal sinus rhythm, normal axis with normal ST and T's. The Lexiscan was infused over a period of 20 seconds. A total of 0.4 mg of Lexiscan was infused. The stress phase was continued for a total of 5 minutes. Heart rate was at the end of stress phase was 68 bpm and a blood pressure of 145/80 mmHg. The EKG at the peak infusion revealed normal sinus rhythm with no significant ST-T wave changes. Sestamibi was injected 20 seconds after the Lexiscan infusion. Blood pressure at the end of recovery phase was 135/84mmHg with a heart rate of 66 bpm. Conclusion: 1. Normal EKG response to Lexiscan infusion 2. No Lexiscan induced chest pain or cardiac arrhythmia. 3. Normal blood pressure and heart rate response. 4. Sestamibi/sestamibi perfusion scan pending; see separate report. Electronically Signed On 12-10-2024 13:33:34 TECHNICAL SERVICES REP by Ant Arroyo M.D. [email or web address]
[2024-11-20 07:46] VITALS: BMI 34.5
--- NOTE | 2024-11-20 07:54 | NMCV_ITS ---
NM abby perf SPECT r/s* [id number] Jt Mccoy Age: 73 Gender: M : 1950 Exam Date: 11/20/2024 08:43 Ordering Phys: Ant Arroyo M.D ([email or web address]) Technologist: SERGE Priest Exam Location: [facility] Indications: CP STRESS TEST Please see separate stress test report in [facility] for full findings IMAGE PROTOCOL Rest/Stress 1 Lexiscan Day Radiopharmaceutical Dose (mCi) Administration Site Administered by Rest: Tc-99m 10.9 IV SUSAN PriestMT Sestamibi Stress:Tc-99m 33 IV Yara Yu, DIRECTOR TREASURER Sestamibi Rest: 20-Nov-2024 60 Discovery 630 Stress: 20-Nov-2024 30 Discovery 630 0.4mg Lexiscan. Images obtained in supine and prone position. SPECT RESULTS Technical Quality: Good Raw Data Analysis: Normal Image Corrections: No attenuation or motion correction applied Summed Stress Score: 1 Summed Rest Score: 3 Summed Difference Score: 0 PERFUSION FINDINGS SPECT images demonstrate homogeneous tracer distribution throughout the myocardium. FUNCTIONAL RESULTS (calculated via Gated SPECT) Stress Image LV EF (%): 69 Stress EDV (mL):108 TID: 1.17 Stress ESV (mL):33 FUNCTIONAL FINDINGS: There is normal left ventricular systolic function. IMPRESSIONS 1. Normal myocardial perfusion imaging with no evidence of ischemia. 2. LV systolic function is normal Ant Arroyo MD (Electronically Signed) Final Date: 21 November 2024 19:00 S
[2024-11-20] MEDS: regadenoson 0.4 Mg/5 ml Syringe IVP (09:13)
[2024-11-20 09:41] VITALS: BP 138/65; PULSE 65
--- NOTE | 2024-11-20 10:14 | USCV_ITS ---
Jt Mccoy Age: 73 Gender: M : 1950 Exam Date: 11/20/2024 10:19 Ordering Phys: Ant Arroyo M.D ([email or web address]) Technologist: [place] [facility] [place]: Pre Op clearance BP: 130 / 80 HR: 72 Rhythm: Sinus Technical Quality: Adequate MEASUREMENTS (Male / Female) Normal Values 2D ECHO LV Diastolic Diameter PLAX 4.3 cm 4.2 - 5.9 / 3.9 - 5.3 cm IVS Diastolic Thickness 1.9 cm 0.6 - 1.0 / 0.6 - 0.9 cm IVS Systolic Thickness 2.6 cm LVPW Diastolic Thickness 1.8 cm 0.6 - 1.0 / 0.6 - 0.9 cm LVPW Systolic Thickness 2.2 cm LVOT Diameter 2.1 cm LV Ejection Fraction 2D Teich 76.2 % LV Ejection Fraction MOD 4C 71.6 % LV Ejection Fraction MOD 2C 58.4 % LV Ejection Fraction 2C AL 62.2 % LA Diameter 3.6 cm RA Systolic Volume 4C AL 29.6 ml RA Systolic Volume 4C MOD 32.1 ml LA Sys Volume AL 44.1 cm cubed LA Sys Volume Index AL 11.7 cm cubed/m squared Aorta at Sinotubular Diameter 2.8 cm M-MODE LA Ao Ratio MM 1.3 AV Cusp Separation MM 1.3 cm DOPPLER AV Peak Velocity 166.0 cm/s LVOT Peak Velocity 116.0 cm/s AV Area Cont Eq vti 3.1 cm squared AV Area Cont Eq pk 2.4 cm squared MV Peak Velocity 117.0 cm/s MV Area PHT 3.3 cm squared Mitral E to A Ratio 0.9 TR Peak Velocity 242.0 cm/s TR Peak Gradient 23.4 mmHg TV Peak E Velocity 122.0 cm/s PV Peak Velocity 88.0 cm/s FINDINGS Left Ventricle Left ventricle is normal in size. LV systolic function is normal with EF of 60-65%. No regional wall motion abnormalities. Right Ventricle Normal in size and function Right Atrium Normal in size Left Atrium Normal in size Mitral Valve Moderate mitral annular calcification. Mild mitral regurgitation. Aortic Valve Aortic valve is thickened. No significant stenosis or regurgitation. Tricuspid Valve Mild tricuspid regurgitation. Pulmonary artery systolic pressure is normal Pulmonic Valve Not well visualized Pericardium Normal Aorta Normal in size IVC Not well visualized. CONCLUSIONS LV systolic function is normal with EF of 60-65% Mild mitral regurgitation Mild tricuspid regurgitation Ant Arroyo MD (Electronically Signed) Final Date: 21 November 2024 21:40 S
== END 2024-11-20 07:24 | disposition home or self-care (01) ==
LOC: CDL 07:24
PROVIDERS: PCP Nurse Practitioner Family; Visit Provider Internal Medicine
DX: R07.9 Chest pain, unspecified (principal); I34.81 Nonrheumatic mitral (valve) annulus calcification; I34.0 Nonrheumatic mitral (valve) insufficiency; I35.8 Other nonrheumatic aortic valve disorders; I07.1 Rheumatic tricuspid insufficiency
CPT/HCPCS: 36415; 78452; 93017; 93306; 96374; A9500; J2785

== ENCOUNTER → 2024-11-21 11:03 | Outpatient (BNVA) | payer MEDICARE, SELFPAY | PROVIDERS: PCP Nurse Practitioner Family; Visit Provider Thoracic Surgery (Cardiothoracic Vascular Surgery) | DX: I96 Gangrene, not elsewhere classified (principal); I87.2 Venous insufficiency (chronic) (peripheral); L97.821 Non-pressure chronic ulcer of other part of left lower leg limited to breakdown of skin | CPT/HCPCS: 97597; 97598; A6197; A6253 ==

== ENCOUNTER 2024-11-24 14:19 | Outpatient (CLI) | payer MEDICARE, SELFPAY ==
--- NOTE | 2024-11-24 14:27 | USR_ITS ---
PROCEDURE INFORMATION: Exam: US Duplex Bilateral Lower Extremity Arteries Exam date and time: 11/24/2024 2:40 PM Age: 73 years old Clinical indication: Pain; Leg, lower; Bilateral; Prior surgery; Surgery date: 6+ months; Surgery type: RT stent placement in femoral artery; Additional info: Lower extremity wound, claudication TECHNIQUE: Imaging protocol: Real-time ultrasound scan of the arteries of the bilateral lower extremities with 2-D alfred scale, color Doppler flow and spectral waveform analysis. Images documented and saved. COMPARISON: No relevant prior studies available. FINDINGS: Right common femoral artery: Monophasic waveforms with diminished velocity measured at 11 cm/s. Right superficial femoral artery: Monophasic waveforms. Stent within the superficial femoral artery. Diminished velocity ranging from 10-22 cm/s. Right popliteal artery: Monophasic waveforms with velocity measuring 92 cm/s. Right calf/foot arteries: Monophasic waveform seen in the posterior tibial and dorsalis pedis arteries with velocity measuring 27 cm/s and 58 cm/s respectively. Left common femoral artery: Monophasic waveforms with velocity measuring 98 cm/s. Left superficial femoral artery: Monophasic waveforms. Velocity measures 87 cm/s in the proximal vessel, 117 cm/s in the mid vessel, and 62 cm/s in the distal vessel suggesting mild stenosis in the mid vessel. Left popliteal artery: Monophasic waveforms with velocity measuring 74 cm/s. Left calf/foot arteries: Monophasic waveform seen in the posterior tibial artery measuring 96 cm/s. The dorsalis pedis artery was not visualized. US/[place] [id number] IMPRESSION: 1. Evidence for peripheral vascular disease bilaterally with monophasic waveforms from the common femoral artery to the visualized calf veins bilaterally. 2. Markedly diminished flow within the right common femoral and superficial femoral arteries with velocity ranging from 10-22 cm/s. There is a stent in the superficial femoral artery with diminished flow demonstrated. 3. Mildly elevated velocity in the mid left SFA suggesting mild stenosis. 4. Left dorsalis pedis artery not visualized.
== END 2024-11-24 14:20 | disposition home or self-care (01) ==
PROVIDERS: PCP Nurse Practitioner Family; Visit Provider Nurse Practitioner Family
DX: I73.9 Peripheral vascular disease, unspecified (principal); Z98.890 Other specified postprocedural states; R93.89 Abnormal findings on diagnostic imaging of other specified body structures
CPT/HCPCS: 93925

== ENCOUNTER → 2024-11-28 11:01 | Outpatient (BNVA) | payer MEDICARE, SELFPAY | PROVIDERS: PCP Nurse Practitioner Family; Visit Provider Thoracic Surgery (Cardiothoracic Vascular Surgery) | DX: I96 Gangrene, not elsewhere classified (principal); I87.2 Venous insufficiency (chronic) (peripheral); L97.821 Non-pressure chronic ulcer of other part of left lower leg limited to breakdown of skin | CPT/HCPCS: 97597; A6197; A6251 ==

== ENCOUNTER → 2024-12-05 11:10 | Outpatient (BNVA) | payer MEDICARE, SELFPAY | PROVIDERS: PCP Nurse Practitioner Family; Visit Provider Thoracic Surgery (Cardiothoracic Vascular Surgery) | DX: I96 Gangrene, not elsewhere classified (principal); I87.2 Venous insufficiency (chronic) (peripheral); L97.822 Non-pressure chronic ulcer of other part of left lower leg with fat layer exposed | CPT/HCPCS: 11042; A6197; A6251 ==

== ENCOUNTER 2024-12-13 11:21 | Outpatient (CLI) | payer MEDICARE, SELFPAY ==
--- NOTE | 2024-12-13 12:00 | CTR_ITS ---
PROCEDURE INFORMATION: Exam: CTA Abdominal Aorta and Bilateral Lower Extremities (Run-off) With Contrast Exam date and time: 12/13/2024 12:03 PM Age: 74 years old Clinical indication: Discoloration or erythema; Lower extremity; Left; Prior surgery; Surgery date: 6+ months; Surgery type: RT femoral artery; Additional info: Abnormal US, wound lle. Wound on medial left ankle x 3 months. Discoloration of left lower leg TECHNIQUE: Imaging protocol: Computed tomographic angiography of the of the abdominal aorta, pelvis and bilateral lower extremities with contrast. 3D rendering (Not supervised by radiologist): MIP and/or 3D reconstructed images were created by the technologist. Radiation optimization: All CT scans at this facility use at least one of these dose optimization techniques: automated exposure control; mA and/or kV adjustment per patient size (includes targeted exams where dose is matched to clinical indication); or iterative reconstruction. Contrast material: OMNI 350; Contrast volume: 120 ml; Contrast route: INTRAVENOUS (IV); COMPARISON: CT angio abd aorta runof [id number] 04/02/2020 8:13 AM RADIATION DOSE METRICS: Total DLP (mGy-cm): 1878.06 FINDINGS: Aorta: No aortic aneurysm. No aortic dissection. No significant pathology. Celiac trunk and mesenteric arteries: Unremarkable celiac axis and superior mesenteric artery. 50-69% diameter stenosis origin of the inferior mesenteric artery. Otherwise, unremarkable NEAL. Renal arteries: Unremarkable single right renal artery. Two left renal arteries. 50-69% diameter stenosis proximally in the larger superior left renal artery. Otherwise, unremarkable left renal arteries. Right iliac arteries: No occlusion or significant stenosis. Right femoral/popliteal arteries: Unremarkable right common femoral and right deep femoral arteries. Completely occluded right superficial femoral and popliteal arteries. Uncertain age of these occlusions. Well expanded stent in the proximal right superficial femoral artery. Right infrapopliteal arteries: Reconstitution of the entire normal right peroneal artery. Complete occlusion of the right anterior tibial artery. Uncertain age of this occlusion. Reconstitution of the mid right posterior tibial artery. The right posterior tibial artery distal to this is widely patent into the plantar arches. . Left iliac arteries: No occlusion or significant stenosis. Left femoral/popliteal arteries: Unremarkable left common femoral artery, left deep femoral artery, and left superficial femoral artery. Greater than 70% diameter stenosis proximal left popliteal artery. Otherwise, unremarkable left popliteal artery. 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 Widely patent proximal left anterior tibial artery, but the mid and distal left anterior tibial artery is completely occluded. Uncertain age of this occlusion. Normal left posterior tibial artery into the plantar arches. Normal left peroneal artery. Lungs: Scarring in the lingula. Otherwise, unremarkable. Heart: Mild cardiomegaly. Liver: No mass. Gallbladder and biliary ducts: Unremarkable. No calcified stones. No ductal dilation. Pancreas: Unremarkable. No mass. No ductal dilation. Spleen: Normal. No splenomegaly. Adrenal glands: Unchanged benign right adrenal nodule measuring 2.2 cm in maximum dimension. Otherwise, unremarkable. Kidneys and ureters: A few bilateral renal cysts need no follow-up. Otherwise, unremarkable. Stomach and bowel: Diverticula from the colon. No diverticulitis. Otherwise, unremarkable. Appendix: No evidence of appendicitis. Urinary bladder: Unremarkable. No mass. Reproductive: Enlarged prostate gland measuring 7 cm by 5.7 cm by 4.3 cm. Otherwise, unremarkable. Intraperitoneal space: Unremarkable. No free air. No significant fluid collection. Lymph nodes: Mild left inguinal and left iliac lymphadenopathy. No other lymphadenopathy. Bones/joints: Mild and moderate multilevel spondylosis. Severe arthritis medial compartment right knee. Otherwise, unremarkable. Soft tissues: Surgical material anterior body wall. Small bilateral fat containing inguinal hernias. Diffuse left calf edema and skin thickening. Otherwise, unremarkable visualized body wall. Otherwise, unremarkable soft tissues. CT/CT angio abd aorta runof [id number] IMPRESSION: 1. 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 2. Two left renal arteries. 50-69% diameter chronic stenosis proximally of the larger superior left renal artery. 3. Greater than 70% diameter chronic stenosis proximal left popliteal artery. 4. Completely occluded right superficial femoral and popliteal arteries. Uncertain age of these occlusions. Well expanded stent in the proximal right superficial femoral artery. 5. Reconstitution of the entire normal right peroneal artery. Reconstitution of the mid right posterior tibial artery. The right posterior tibial artery distal to this is widely patent into the plantar arches. Complete occlusion of the right anterior tibial artery. Uncertain age of this occlusion. 6. Widely patent proximal left anterior tibial artery, but the mid and distal left anterior tibial artery is completely occluded. Uncertain age of this occlusion. 7. No other significant arterial pathology. 8. Diffuse left calf edema and skin thickening. 9. Mild left inguinal and left iliac lymphadenopathy. Probably reactive. 10. Additional details as above.
[2024-12-13 12:21] LABS: Blood Urea Nitrogen 14 mg/dL (8-23)
[2024-12-13] MEDS: iohexol 350 mg/mL 500 mL Btl (per mL) IV (12:22)
== END 2024-12-13 11:22 | disposition home or self-care (01) ==
PROVIDERS: Radiology Diagnostic Radiology; PCP Nurse Practitioner Family; Visit Provider Nurse Practitioner Family
DX: I70.201 Unspecified atherosclerosis of native arteries of extremities, right leg (principal); I70.202 Unspecified atherosclerosis of native arteries of extremities, left leg; I77.1 Stricture of artery; K55.1 Chronic vascular disorders of intestine; I70.1 Atherosclerosis of renal artery; R93.89 Abnormal findings on diagnostic imaging of other specified body structures; R23.4 Changes in skin texture; R59.0 Localized enlarged lymph nodes; I51.7 Cardiomegaly; K57.30 Diverticulosis of large intestine without perforation or abscess without bleeding; N40.0 Benign prostatic hyperplasia without lower urinary tract symptoms; M47.899 Other spondylosis, site unspecified; M17.11 Unilateral primary osteoarthritis, right knee; K40.20 Bilateral inguinal hernia, without obstruction or gangrene, not specified as recurrent; R60.0 Localized edema
CPT/HCPCS: 75635; 82565; 84520

== ENCOUNTER → 2024-12-19 11:04 | Outpatient (BNVA) | payer MEDICARE, SELFPAY | PROVIDERS: PCP Nurse Practitioner Family; Visit Provider Thoracic Surgery (Cardiothoracic Vascular Surgery) | DX: I96 Gangrene, not elsewhere classified (principal); I87.2 Venous insufficiency (chronic) (peripheral); L97.822 Non-pressure chronic ulcer of other part of left lower leg with fat layer exposed | CPT/HCPCS: 11042; 11045 ==

== ENCOUNTER → 2024-12-26 14:22 | Outpatient (BNVA) | payer MEDICARE, SELFPAY | PROVIDERS: PCP Nurse Practitioner Family; Visit Provider Thoracic Surgery (Cardiothoracic Vascular Surgery) | DX: I96 Gangrene, not elsewhere classified (principal); I87.2 Venous insufficiency (chronic) (peripheral); L97.822 Non-pressure chronic ulcer of other part of left lower leg with fat layer exposed | CPT/HCPCS: 11042; A6253 ==

== ENCOUNTER → 2025-01-09 11:05 | Outpatient (BNVA) | payer MEDICARE, SELFPAY | PROVIDERS: PCP Nurse Practitioner Family; Visit Provider Thoracic Surgery (Cardiothoracic Vascular Surgery) | DX: I96 Gangrene, not elsewhere classified (principal); I87.2 Venous insufficiency (chronic) (peripheral); L97.822 Non-pressure chronic ulcer of other part of left lower leg with fat layer exposed | CPT/HCPCS: 11042 ==

== ENCOUNTER → 2025-01-18 13:27 | Outpatient (BNVA) | payer MEDICARE, SELFPAY | PROVIDERS: PCP Nurse Practitioner Family; Visit Provider Internal Medicine | DX: I73.9 Peripheral vascular disease, unspecified (principal); I11.0 Hypertensive heart disease with heart failure; I50.32 Chronic diastolic (congestive) heart failure; L97.929 Non-pressure chronic ulcer of unspecified part of left lower leg with unspecified severity; Z86.711 Personal history of pulmonary embolism; Z86.718 Personal history of other venous thrombosis and embolism; Z95.5 Presence of coronary angioplasty implant and graft; F17.210 Nicotine dependence, cigarettes, uncomplicated | CPT/HCPCS: 99214 ==

== ENCOUNTER → 2025-01-26 08:22 | Outpatient (BNVA) | payer MEDICARE, SELFPAY | PROVIDERS: PCP Nurse Practitioner Family; Visit Provider Thoracic Surgery (Cardiothoracic Vascular Surgery) | DX: I96 Gangrene, not elsewhere classified (principal); I87.2 Venous insufficiency (chronic) (peripheral); L97.822 Non-pressure chronic ulcer of other part of left lower leg with fat layer exposed | CPT/HCPCS: 11042 ==

== ENCOUNTER 2025-01-31 08:46 | Outpatient (CLI) | payer MEDICARE, SELFPAY ==
--- NOTE | 2025-01-29 10:07 | PC.NURSE ---
Unable to get ahold of patient to advise to hold Eliquis until after his procedure on Wednesday. Heart care will call patient about RX of lovenex bridge while holding Eliquis.
[2025-01-31] VITALS (16 sets, daily range): BP systolic 131–164; BP diastolic 62–86; PULSE 54–68; RESP 14–17; TEMP 36.6; O2SAT 94–98; BMI 34.5
--- NOTE | 2025-01-31 09:00 | XACV_ITS ---
Exam Room: 2 Ht: 183 cm Wt: 116 kg BSA: 2.46 m2 Gender: Male : 1950 Any Known Allergies: Other Exam Priority: Routine Procedure(s): Procedure Description: Diagnostic procedure Procedure Description: Peripheral Cath Diagnostic Procedure Procedure Description: Abdominal aortic angiography Procedure Description: Lower extremities' angiography Procedure Description: Peripheral vascular Intervention Procedure Description: PV Balloon Procedure Description: PV Stent Procedure Description: Miscellaneous Procedure Description: ACT Abdominal Diagnostic Findings Distal abdominal aorta is patent. Lower Extremity Diagnostic Findings INDICATION: Non-healing wound of left lower extremity/critical limb ischemia. Left Mid to distal-longitudinal Superficial Femoral Artery: Severe 95% stenosis. Left lower extremity findings: Left common iliac artery is patent. Left external iliac artery is patent. Left internal iliac artery is patent. Left common femoral artery is patent. Left profunda artery is patent. Left SFA has mid to distal severe 95% stenosis. Left popliteal artery is patent. Below the knee has two-vessel runoff with patent posterior tibial artery and peroneal arteries. Occluded anterior tibial artery.. Right lower extremity findings: Right common iliac artery is patent. Right external iliac artery is patent. Right common femoral artery is patent. Right profunda artery is patent. Right SFA is ostially occluded with occluded prior stents.. Extensive collaterals reconstitute below the knee vessels with reconstitution of the peroneal artery and distal posterior tibial artery. Anterior tibial artery is occluded.. Lower Extremity Interventional Findings Left Mid to distal-longitudinal Superficial Femoral Artery: 95% stenosis treated with BARD 5FR Lutinox 6.5a893ed drug coated balloon, Omnilink Elite 7.0 X 59mm Stent, and Omnilink Elite 7.0mm X 29 mm Stent. Procedure detail:After diagnostic images were obtained, we switched short sheath to the long sheath that was parked in the left external iliac artery. Using Glidewire we crossed severe stenosis of mid to distal SFA. Balloon angioplasty was performed with 6.0 x 150 mm drug-coated balloon. This was followed by placement of 7.0 x 59 mm Omnilink stent. Second stent measuring 7.0 x 29 mm was also placed in an overlapping fashion. At this time final angiogram was performed that showed excellent stent expansion and no residual stenosis. Patient left the lab associate in a stable condition.. Conclusions Severe left SFA stenosis status post successful revascularization with 2 stents.. Left SFA was treated with a Balloon, Stent, and Stent. Medical management of right lower extremity PAD. Left Mid-longitudinal Superficial Femoral Artery was treated with Balloon and two Stent. Recommendations Eliquis and plavix. Outpatient cardiology follow up in 2 weeks. Pressures Phase:Rest AO : 160 / 69 ( 102 ) @ 1:33:00 PM Hemodynamic Data Phase:Rest AO : 160.0 / 69.0 ( 102.0 ) @ 1:33:00 PM Clinical Evaluation EBL: 5mL-10mL Procedural Details Procedure Consent Obtained. Pre-Procedure Time Out. Identified patient by full name and date of as verbalized by the patient/guarantor. Does the consent match the physician's order: Yes. Accurate & Complete Informed Consent: Yes. Inpatient/Outpatient History & Physical on Chart: Yes. If H&P is completed, is and addenduem needed: No; If yes, is the addendum complete: N/A. Visualize and Verify Site with Patient/Guarantor: N/A. Relevant Radiology Images available: Yes. The risks, benefits, and alternatives of sedation and/or procedure were discussed by physician. The patient agrees to continue. Procedure started. Correct patient, site and procedure confirmed by cath team. PERRLA. Strong, equal hand discotheque dancer bilaterally. Lungs clear x 5 lobes. IV Site on Arrival: 20 gauge in the right anticubital. IV Fluids: 0.9% NaCl at KVO. 0 mL infused prior to lab associate. Pre Procedural Pulses: bilateral radial was 3+. Pre Procedural Pulses: bilateral dorsalis pedis was Doppled. Pre Procedural Pulses: right posterior tibial was Doppled. Oxygen started at 2liters/min via nasal canula. bilateral groins was prepped with chloroprep then draped in the usual sterile fashion. Physician notified. Baseline sample Acquired. HR: 78 BPM. Physician arrived. Admit Source: Out Patient. Physician scrubbed in. Immediate Pre-Procedure Time Out. Correct Patient: Yes; Correct Procedure: Yes; Correct Site: Yes; Correct Patient Position: Yes; Correct Supplies: Yes; Dried Flammable Prep: Yes; Blood Products Available: No;. Lidocaine 1% infiltrated to the right groin. Arterial access obtained with micropuncture set. A 5Fr UF catheter in over wire. Wire out. Abdominal aortogram performed in AP @ 10 mL/sec for a total of 30 mL. Glidewire in through UF catheter. UF catheter out over wire. 6fr short sheath exchanged for 6fr flexor sheath over glidewire. Glidewire parked in mid left SFA. Left common femoral selected and arteriogram with runoff performed @ 10 mL/sec for a total of 30 mL. Wire advanced to peroneal artery. Balloon inserted over the wire to the left superficial femoral. Inflation number : 1 A BARD 5FR Lutinox 6.8x265hr drug coated balloon was prepped and advanced across the Mid Superficial Femoral, Left , then inflated to 9 RODDY for 2:03 seconds. Balloon out over wire. 6fr 45cm flexor sheath exchanged for new 6fr 45 cm flexor sheath. Left common femoral selected and arteriogram with runoff performed @ 10 mL/sec for a total of 20 mL. Stent inserted over the wire to the mid superficial femoral. Inflation Number : 2 A Omnilink Elite 7.0 X 59mm Stent -Lot Number# [id number] 06-17-2026 was prepped and advanced across the Mid Superficial Femoral, Left. The stent was deployed at 11 RODDY for 1:01 seconds. Stent balloon out over wire. DSA imaging performed of left mid and distal SFA. Stent inserted over the wire to the left mid superficial femoral. Inflation Number : 3 A Omnilink Elite 7.0mm X 29 mm Stent -Lot Number# [id number] 06-17-2025 was prepped and advanced across the Mid Superficial Femoral, Left. The stent was deployed at 11 RODDY for 1:00 seconds. Inflation number: 4 The stent balloon was then re-inflated across the Mid Superficial Femoral, Left to 11 RODDY for 0:30 seconds. Balloon out over wire. Left common femoral selected and arteriogram with runoff performed @ 10 mL/sec for a total of 30 mL. Glidewire in through sheath. 6fr 45cm flexor sheath exchanged for 6fr short sheath over glidewire. Wire out. Sheath injected in Right common femoral artery and runoff performed. ACT drawn. Results 274 seconds. Therapeutic limits - pre-heparin administration 90-150 seconds and monitoring heparin during a vascular procedure >250 seconds. A Suture was successful obtaining hemostatsis at the Right Femoral artery insertion site. Physician scrubbed out. Sheath(s) sutured into position with 2-0 silk and sterile 4x4's and Op-site applied over the site. No oozing or signs and symptoms of hematoma noted. Arterial sheath flushed and connected to tranducer and pressure bag with heparinized saline. Post Procedure: Pulses reassessed and unchanged. PERRLA. Strong, equal hand discotheque dancer bilaterally. No VTE prophylaxis required. Medication's Wasted: Lidocaine 1% = 10 mL. Medication's Wasted: Heparin = 1000 unit. Total IV fluids: 50 mL. Post-op diagnosis: Severe stenosis of mid left SFA. Status post balloon angioplasty and placement of 2 Stents. Complications: None. Estimated blood loss: 5mL-10mL. Responsiveness - Normal response to verbal stimuli; alert and oriented, PERRLA. Airway - Unaffected, no intervention required; spontaneous ventilation. Circulation: W/N/L, pulses unchanged. Nausea/Vomiting: No. Procedure completed. Patient transferred by stretcher to CPRU. Vital chart was stopped. Access Site Site: Right Femoral artery Sheath Size: 6 Fr Hemostasis Method: Suture Hemostasis Success: Successful Procedure Medications Start: 12:20 PM Stop: 12:20 PM Medication: Versed Amount: 1 mg Route: I.V. Start: 12:20 PM Stop: 12:20 PM Medication: Fentanyl Amount: 50 mcg Route: I.V. Start: 12:36 PM Stop: 12:36 PM Medication: Heparin Amount: 77198 units Route: I.V. Start: 12:37 PM Stop: 12:37 PM Medication: Versed Amount: 1 mg Route: I.V. Start: 12:37 PM Stop: 12:37 PM Medication: Fentanyl Amount: 25 mcg Route: I.V. Start: 1:08 PM Stop: 1:08 PM Medication: Fentanyl Amount: 25 mcg Route: I.V. Start: 1:14 PM Stop: 1:14 PM Medication: Plavix Amount: 600 mg Route: P.O. I, the attending physician, have reviewed and verified all procedure medications. Yes, all medications given per verbal order History/Risk Factors Hypertension: Yes Dyslipidemia: Yes Peripheral Arterial Disease (PAD): Yes Myocardial Infarction (MO): No Obesity: Yes Renal Disease: No Prior Interventions PCI: No CABG: No Valve Surgery: No Report Signatures Finalized by Ant Arroyo MD on 02/16/2025 06:24 PM
[2025-01-31] MEDS: diphenhydrAMINE 50 mg Capsule PO (09:30)
[2025-01-31] MEDS: aspirin 325 mg Tablet PO (09:30)
[2025-01-31 09:41] LABS: Basophils # 0.1 10^3/uL (0.0-0.1); Basophils % 0.7 %; Eosinophils # 0.3 10^3/uL (0.0-0.8); Hematocrit 49.6 % (37-53); Lymphocytes # 1.7 10^3/uL (0.8-4.8); Lymphocytes % 25.8 %; Mean Corpuscular HGB Conc 32.1 g/dL (30-55); Mean Corpuscular Hemoglobin 28.6 pg (27-33); Mean Corpuscular Volume 89.2 fl (82-101); Mean Platelet Volume 9.4 fL (7.4-10.4); Monocytes # 0.6 10^3/uL (0.2-0.9); Monocytes % 9.3 %; Neutrophils # 3.96 10^3/uL (1.8-7.7); Neutrophils % 59.2 %; Nucleated Red Blood Cells % 0 %; Platelet Count 206 10^3/cmm (157-399); Red Blood Count 5.56 10^6/uL (3.85-5.65); Red Cell Distribution Width 14.9 % (12.1-15.1)
[2025-01-31 09:59] LABS: Anion Gap 18.4 (5-19); Blood Urea Nitrogen 14 mg/dL (8-23); Carbon Dioxide 23 mmol/L (22-29); Chloride 104 mmol/L (98-107); Creatinine Clr Calc Pharmacy 91.6804; Glucose 109 mg/dL (65-115); Osmolality Calculated 293 mOsm/kg (285-295); Potassium 4.4 mmol/L (3.5-5.1); Sodium 141 mmol/L (136-145)
--- NOTE | 2025-01-31 12:19 | W.PM.OPSUD ---
Surgery/Procedure H&P Update DATE OF PROCEDURE: January 31, 2025 DATE H&P PERFORMED: 01/18/25 H&P UPDATE INFORMATION: I have reviewed H&P completed within last 30 days, I have examined patient prior to procedure and No changes to prior documentation PREOP DIAGNOSIS: Non-healing wound of left lower extremity/critical limb ischemia PRIMARY INDICATION FOR PROCEDURE: Non-healing wound of left lower extremity/critical limb ischemia PLANNED PROCEDURE: Operation Date: 01/31/25 10:00 Proposed Procedures p Peripheral Diagnostic - Periph Angio Bilat(Bilateral) - Ant Arroyo M.D Possible percutaneous intervention PATIENT REASSESSED PRIOR TO SEDATION, WITH NO CHANGE NOTED: Yes PHYSICAL EXAM: alert, oriented x 3, clear to auscultation bilaterally and regular rate & rhythm AIRWAY EVAL/ANESTHESIA PLAN: normal airway, ASA III, Local Anesthesia, Risks, benefits & alternatives of sedation and/or procedure discussed and Patient agrees to continue as planned ADDITIONAL INFORMATION: Moderate sedation
--- NOTE | 2025-01-31 13:30 | SUR.EXTENDED ---
Received the patient back from the bed laborer via bed s/p intervention of the left SFA. Patient drowsy but awakens easily to voice. A & 0 x 3. airport planner placed and vital signs obtained. Right femoral access with 6 [address] sut[address] in place to pressure bag. Dressing dry and intact. Groin soft with no bleeding or hematoma noted. Left DP doppled. No other assessment changes noted from pre cath assessment. Family at bedside. No concerns voiced at this time. Will transfer to [facility] when room available.
--- NOTE | 2025-01-31 14:00 | SUR.EXTENDED ---
Verbal report to Oseas Nichole RN, BAG PATCHER.
[2025-01-31 17:32] LABS: Partial Thromboplastin Time 40.1 SECONDS (23.9-36.7)
--- NOTE | 2025-01-31 22:58 | P.PCN_ITS ---
Procedure Note: Date of procedure: 01/31/25 Pre-procedure diagnosis: Non- healing wound of left lower extremity Post-procedure diagnosis: other (Critical 99% stenosis of mid to distal left SFA S/P successful revascularization with 2 stents) Procedure: Critical mid to distal left SFA stenosis s/p successful revascularization with 2 stents. Severe right lower extremity peripheral artery disease Continue eliquis and plavix Estimated blood loss (mL): 10 Complications: None Condition: stable Disposition: floor Coding Level of Care Code Acute Code for Marcella Rivera
[2025-02-01] VITALS: BP 164/86; PULSE 64; RESP 19; O2SAT 96
[2025-02-01 00:33] VITALS: BP 164/79; PULSE 67; RESP 23; TEMP 37; O2SAT 98
--- NOTE | 2025-02-01 00:33 | PC.NURSE ---
Patient was up at 00:00. Walked half the pedroza from room 107 to nurses station and back to room with no issues. Site dressing dry and intact with not hematoma formation.
[2025-02-01 04:00] VITALS: BP 132/69; PULSE 70; RESP 20; TEMP 37.1; O2SAT 95
[2025-02-01 05:55] LABS: Basophils # 0.1 10^3/uL (0.0-0.1); Basophils % 0.7 %; Eosinophils # 0.2 10^3/uL (0.0-0.8); Eosinophils % 2.7 %; Lymphocytes # 1.4 10^3/uL (0.8-4.8); Lymphocytes % 19.5 %; Mean Corpuscular Hemoglobin 28.3 pg (27-33); Mean Corpuscular Volume 88.4 fl (82-101); Mean Platelet Volume 10.3 fL (7.4-10.4); Monocytes # 0.6 10^3/uL (0.2-0.9); Monocytes % 9.1 %; Neutrophils # 4.68 10^3/uL (1.8-7.7); Neutrophils % 67.4 %; Nucleated Red Blood Cells % 0 %; Platelet Count 184 10^3/cmm (157-399); Red Blood Count 4.98 10^6/uL (3.85-5.65); White Blood Count 6.94 10^3/uL (3.29-11.43)
[2025-02-01 06:14] LABS: Anion Gap 15.1 (5-19); Blood Urea Nitrogen 10 mg/dL (8-23); Calcium 8.4 mg/dL (8.5-10.5); Carbon Dioxide 23 mmol/L (22-29); Chloride 104 mmol/L (98-107); Creatinine Clr Calc Pharmacy 91.6804; Glucose 96 mg/dL (65-115); Osmolality Calculated 285 mOsm/kg (285-295); Potassium 4.1 mmol/L (3.5-5.1); Sodium 138 mmol/L (136-145)
[2025-02-01 08:00] VITALS: BP 142/86; PULSE 67; RESP 12; TEMP 36.8; O2SAT 92
[2025-02-01] MEDS: apixaban 5 mg Tablet PO (08:22)
[2025-02-01] MEDS: clopidogrel 75 mg Tablet PO (08:22)
--- NOTE | 2025-02-01 10:25 | PC.NURSE ---
Patient discharged to home. Instruction provided regarding follow up needs with new medications and site care with restrictions. Patient was provided a hardcopy Rx as would not allow to transmit. Stent information card given to patient prior to leaving. Patient and spouse both verbalized complete understanding. Patient taken by wheelchair to private vehicle. Spouse to provide transportation. Patient denies pain or needs. No distress observed.
--- NOTE | 2025-02-01 10:32 | P.DS_ITS ---
<Statement entered by Ant Arroyo M.D - 02/03/25 19:05> Patient was evaluated and cared for in conjunction with an advanced practice practitioner. I personally examined the patient and reviewed the chart and all pertinent data including imaging, telemetry, and laboratory results. I discussed the patient in detail with the advanced practice practitioner. Please see their note for complete discharge summary, results and agreed upon plan of care for the patient. Patient right lower extremity has a very extensive PAD. Will be treated medically as symptoms are of claudication. If develops wound/ulcers in future, can attempt at revascularization. GENERAL: Patient is alert and oriented HEART: Regular S1 and S2 LUNGS: Clear to auscultation bilaterally EXTREMITIES: Has dressing applied at left ankle. Discharge Providers Date of Admission: 01/31/2025 Date of Discharge: February 01, 2025 Attending Provider at Admission: Dr. Arroyo Attending Provider at Discharge: Ant Arroyo M.D Primary Care Provider: MARA Hardin Reason for Visit Reason for Visit: S81.308H Brief History: Patient has a history of bilateral lower extremity peripheral arterial disease. He has a history of a nonhealing wound to the left lower extremity. He underwent a scheduled procedure to evaluate and treat arterial disease of the left lower extremity. Hospital Course Hospital Course Patient underwent peripheral angiogram was found to have a critical mid to distal left SFA stenosis status post revascularization with 2 stents. He has severe right lower extremity PAD that is not amendable to percutaneous revascularization. Patient tolerated procedure well without complications. He states blood pressure is slightly elevated at times. He has been asked to take a blood pressure log twice daily and present it to our clinic. He will follow up with us and the wound clinic accordingly. Physical Exam Narrative: General: No apparent distress, healthy appearing, well nourished HENMT: normoceophalic Muskuloskeletal: Full ROM Respiratory: Normal respiratory effort, clear to auscultation bilaterally throughout all lung ron, no use of accessory muscles Cardio: No JVD, regular rate, regular rhythm, S1 S2 normal, no murmurs, peripheral pulses 2+ radial palpated bilaterally GI: Normal to inspection, nondistended Extremities: Full ROM, normal, normal capillary refill, no cyanosis, 1+ nonpitting edema bilateral lower extremities Neuro: Alert and oriented x4, no focal motor deficits Psych: Affect normal, denies suicidal ideation, mental status grossly normal Skin: wound that is clean to the inside of the left leg right above the ankle, varicose veins bilaterally, 2+ DP on the left, no PT on the left although it is hard to doppler in that area due to the active wound, bilateral lower extremities warm with 2 second capillary refill, 1+ DP and 2+ PT on the right, right fem stick site clean, dry, intact w/o s/s of hematoma Discharge Data Studies Completed and Pending Pending at discharge Category Date Time Status [employer] request for service Routine Exams 01/31/25 09:00 Taken Laboratory Results WBC 6.94 10^3/uL (3.29-11.43) 02/01/25 05:13 RBC 4.98 10^6/uL (3.85-5.65) 02/01/25 05:13 Hgb 14.10 g/dL (11.27-16.99) 02/01/25 05:13 Hct 44.0 % (37-53) 02/01/25 05:13 MCV 88.4 fl (82-101) 02/01/25 05:13 MCH 28.3 pg (27-33) 02/01/25 05:13 MCHC 32.0 g/dL (30-55) 02/01/25 05:13 RDW 15.0 % (12.1-15.1) 02/01/25 05:13 Plt Count 184 10^3/cmm (157-399) 02/01/25 05:13 MPV 10.3 fL (7.4-10.4) 02/01/25 05:13 Neut % (Auto) 67.4 % 02/01/25 05:13 Lymph % (Auto) 19.5 % 02/01/25 05:13 Piatt % (Auto) 9.1 % 02/01/25 05:13 Eos % (Auto) 2.7 % 02/01/25 05:13 Baso % (Auto) 0.7 % 02/01/25 05:13 Neut # (Auto) 4.68 10^3/uL (1.8-7.7) 02/01/25 05:13 Lymph # (Auto) 1.4 10^3/uL (0.8-4.8) 02/01/25 05:13 Piatt # (Auto) 0.6 10^3/uL (0.2-0.9) 02/01/25 05:13 Eos # (Auto) 0.2 10^3/uL (0.0-0.8) 02/01/25 05:13 Baso # (Auto) 0.1 10^3/uL (0.0-0.1) 02/01/25 05:13 Nucleated RBC % (auto) 0 % 02/01/25 05:13 Nucleated RBCs # 0.0 /100WBC 02/01/25 05:13 APTT 40.1 SECONDS (23.9-36.7) H 01/31/25 16:34 Sodium 138 mmol/L (136-145) 02/01/25 05:13 Potassium 4.1 mmol/L (3.5-5.1) 02/01/25 05:13 Chloride 104 mmol/L (98-107) 02/01/25 05:13 Carbon Dioxide 23 mmol/L (22-29) 02/01/25 05:13 Anion Gap 15.1 (5-19) 02/01/25 05:13 BUN 10 mg/dL (8-23) 02/01/25 05:13 Creatinine 0.9 mg/dL (0.7-1.2) 02/01/25 05:13 GFR Calculation Not Reportable 02/01/25 05:13 Glucose 96 mg/dL (65-115) 02/01/25 05:13 Calculated Osmolality 285 mOsm/kg (285-295) 02/01/25 05:13 Calcium 8.4 mg/dL (8.5-10.5) L 02/01/25 05:13 Procedures Performed Critical mid to distal left SFA stenosis s/p successful revascularization with 2 stents. 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 See Rx Instructions .Route .MEDSUPPLY Qty: 1 0RF Rx Instructions: As directed Eliquis 5 mg tablet 5 mg PO BID Qty: 180 3RF Discharge Orders: Discharge Order (Routine); Ordered 02/01/25 Ordered By: Adelia Grant Referrals: Niya Barrientos FNP [Nurse Practitioner] - 02/12/25 2:30 pm Diet: Low Salt, Low Cholesterol and Low Fat Activity: Limit activity as instructed Patient Instructions: Clopidogrel (By mouth), Peripheral Vascular Stent Placement (DC), Peripheral Vascular Angioplasty (DC) Activity Restrictions/Additional Instructions: Discussed with patient no heavy lifting more than a gallon of milk as well as going up or down steps for 3 days. No driving for 3 days. Monitor for and report signs or symptoms of bleeding. Monitor for and report s/s of infection such as fever 101 or greater, swelling, redness or pain to the groin. Continue Eliquis and Plavix. CBC and BMP in the clinic at f/u in 1 week. Continue to f/u with wound care as directed. Print Language: German Discharge Date/Time: 02/01/25 10:24 Discharge Attestations Time Spent in Discharge Care*: less than 30 min Quality Metrics Clinical Quality Measures [ No reported AMI, CVA or VTE this stay] Coding Level of Care Code Acute Code for Chg Fwd
== END 2025-02-01 10:24 | disposition home or self-care (01) ==
LOC: CCL 08:50 → CSU 15:07
PROVIDERS: Nurse Practitioner Family; PCP Nurse Practitioner Family; Visit Provider Internal Medicine
DX: I70.203 Unspecified atherosclerosis of native arteries of extremities, bilateral legs (principal); T82.856A Stenosis of peripheral vascular stent, initial encounter; I11.0 Hypertensive heart disease with heart failure; I50.9 Heart failure, unspecified; E78.5 Hyperlipidemia, unspecified; E66.9 Obesity, unspecified; Z68.34 Body mass index [BMI] 34.0-34.9, adult; Z95.5 Presence of coronary angioplasty implant and graft; Z79.01 Long term (current) use of anticoagulants; J44.9 Chronic obstructive pulmonary disease, unspecified; G47.33 Obstructive sleep apnea (adult) (pediatric); Z85.46 Personal history of malignant neoplasm of prostate; Z86.711 Personal history of pulmonary embolism; F17.210 Nicotine dependence, cigarettes, uncomplicated
CPT/HCPCS: 36415; 37226; 75625; 75716; 80048; 85025; 85347; 85730; 99152; 99153; C1769; C1876; C1887; C1894; C2623; J1644; J2250; J3010; J7050; J9999; Q0163; Q9967

== ENCOUNTER → 2025-02-06 11:10 | Outpatient (BNVA) | payer MEDICARE, SELFPAY | PROVIDERS: PCP Nurse Practitioner Family; Visit Provider Thoracic Surgery (Cardiothoracic Vascular Surgery) | DX: I96 Gangrene, not elsewhere classified (principal); I87.2 Venous insufficiency (chronic) (peripheral); L97.821 Non-pressure chronic ulcer of other part of left lower leg limited to breakdown of skin | CPT/HCPCS: 97597 ==

== ENCOUNTER → 2025-02-13 10:32 | Outpatient (BNVA) | payer MEDICARE, SELFPAY | PROVIDERS: PCP Nurse Practitioner Family; Visit Provider Thoracic Surgery (Cardiothoracic Vascular Surgery) | DX: I96 Gangrene, not elsewhere classified (principal); I87.2 Venous insufficiency (chronic) (peripheral); L97.821 Non-pressure chronic ulcer of other part of left lower leg limited to breakdown of skin | CPT/HCPCS: 97597; A6021; A6248 ==

== ENCOUNTER → 2025-02-20 13:31 | Outpatient (BNVA) | payer MEDICARE, SELFPAY | PROVIDERS: PCP Nurse Practitioner Family; Visit Provider Thoracic Surgery (Cardiothoracic Vascular Surgery) | DX: I96 Gangrene, not elsewhere classified (principal); I87.2 Venous insufficiency (chronic) (peripheral); L97.821 Non-pressure chronic ulcer of other part of left lower leg limited to breakdown of skin | CPT/HCPCS: 97597 ==

== ENCOUNTER → 2025-02-26 14:10 | Outpatient (BNVA) | payer MEDICARE, SELFPAY | PROVIDERS: PCP Nurse Practitioner Family; Visit Provider Thoracic Surgery (Cardiothoracic Vascular Surgery) | DX: I96 Gangrene, not elsewhere classified (principal); I87.2 Venous insufficiency (chronic) (peripheral); L97.821 Non-pressure chronic ulcer of other part of left lower leg limited to breakdown of skin | CPT/HCPCS: 97597 ==

== ENCOUNTER → 2025-03-05 14:16 | Outpatient (BNVA) | payer MEDICARE, SELFPAY | PROVIDERS: PCP Nurse Practitioner Family; Visit Provider Thoracic Surgery (Cardiothoracic Vascular Surgery) | DX: I96 Gangrene, not elsewhere classified (principal); I87.2 Venous insufficiency (chronic) (peripheral); L97.821 Non-pressure chronic ulcer of other part of left lower leg limited to breakdown of skin | CPT/HCPCS: 97597; A6021 ==

== ENCOUNTER → 2025-03-13 14:48 | Outpatient (BNVA) | payer MEDICARE, SELFPAY | PROVIDERS: PCP Nurse Practitioner Family; Visit Provider Thoracic Surgery (Cardiothoracic Vascular Surgery) | DX: I96 Gangrene, not elsewhere classified (principal); I87.2 Venous insufficiency (chronic) (peripheral); L97.821 Non-pressure chronic ulcer of other part of left lower leg limited to breakdown of skin | CPT/HCPCS: 97597; A6021 ==

== ENCOUNTER → 2025-03-19 13:28 | Outpatient (BNVA) | payer MEDICARE, SELFPAY | PROVIDERS: PCP Nurse Practitioner Family; Visit Provider Thoracic Surgery (Cardiothoracic Vascular Surgery) | DX: Z09 Encounter for follow-up examination after completed treatment for conditions other than malignant neoplasm (principal); Z87.2 Personal history of diseases of the skin and subcutaneous tissue | CPT/HCPCS: 99212 ==